=== PATIENT | female | born 1950 | race Two or more races ===

== ENCOUNTER 2020-04-14 17:56 | Inpatient (IN) | payer OTHER ==
[~2020-04-14] VITALS: Ht 152.4 cm; Wt 70.0 kg
[2020-04-14 10:24] VITALS: BP 134/68
[2020-04-14 19:06] LABS: Basophils # (auto) 0.1 10 ^3/uL (0-0.2); Basophils % (auto) 0.7 % (0.0-2.0); Eosinophils # (auto) 0.1 10 ^3/uL (0-0.8); Eosinophils % (auto) 1.2 % (0.0-7.0); Hematocrit 42.4 % (36.0-46.0); Hemoglobin 14.2 g/dL (12.2-16.2); Lymphocytes # (auto) 1.6 10 ^3/uL (0.4-5.4); Lymphocytes % (auto) 15.1 % (10.0-50.0); Mean Corpuscular Hemoglobin 31.7 pg (28.0-32.0); Mean Corpuscular Hgb Conc. 33.5 g/dL (32.0-36.0); Mean Corpuscular Volume 94.8 fL (80.0-100.0); Monocytes # (auto) 0.5 10 ^3/uL (0-1.3); Neutrophils # (auto) 8.5 10 ^3/uL (1.6-8.6); Platelet Count (auto) 275 10^3/uL (140-450); Red Blood Cells 4.47 10^6/uL (4.0-5.20); Red Cell Distribution Width 13.4 % (11.8-14.3); White Blood Cell 10.8 10^3/uL (4.4-10.8)
[2020-04-14 19:22] LABS: Alanine Aminotransferase 22 U/L (13-56); Albumin 3.7 g/dL (3.4-5.0); Anion Gap 4 (5-15); Aspartate Aminotransferase 14 U/L (15-37); BUN/Creatinine Ratio 14.6; Blood Urea Nitrogen 13 mg/dL (7-18); Calcium 9.2 mg/dL (8.5-10.1); Carbon Dioxide 26 mmol/L (21-32); Chloride 108 mmol/L (98-107); GFR African American 81 mL/min; GFR Non-African American 67 mL/min; Glucose 206 mg/dL (74-106); Potassium 3.5 mmol/L (3.5-5.1); Sodium 138 mmol/L (136-145)
[2020-04-14 19:25] LABS: Alkaline Phosphatase 122 U/L (45-117); Bilirubin, Total 0.3 mg/dL (0.2-1.0); Total Protein 7.8 g/dL (6.4-8.2)
[2020-04-14] MEDS ORDERED: cloNIDine HCL 0.1 MG TAB PO ONE ×2 (19:30→21:15)
[2020-04-14 19:31] LABS: INR 0.96 (0.9-1.15); Partial Thromboplastin Time 24.4 sec (23.64-32.05)
[2020-04-14] MEDS ORDERED: NITROGLYCERIN 0.4 MG SL TAB SL PRN (21:30)
[2020-04-14] MEDS ORDERED: ONDANSETRON HCL 4 MG/2 ML VIAL IV PRN (21:30)
[2020-04-14] MEDS ORDERED: cloNIDine HCL 0.1 MG TAB PO PRN (21:30)
[2020-04-14] MEDS ORDERED: TEMAZEPAM 15 MG CAP PO PRN (21:30)
[2020-04-14] MEDS ORDERED: ASPirin 81 mg TAB PO ONE (21:30)
[2020-04-14] MEDS ORDERED: MORPHINE SULF INJ 2 MG/ML SYRINGE 1ML IV PRN (21:30)
[2020-04-14] MEDS ORDERED: DEXTROSE (50%) 50ML SYRG IV PRN (21:30)
[2020-04-14 22:00] VITALS: BP 134/68
[2020-04-14] MEDS: ATORVASTATIN 20 MG TAB PO SCH (22:01)
[2020-04-14] MEDS: FAMOTIDINE 20 MG TAB PO SCH (22:02)
[2020-04-14] MEDS: METOPROLOL TARTRATE 25 MG TAB PO SCH (22:02)
[2020-04-14] MEDS: ACCU-CHEK COMFORT CURVE STRIP VI SCH (22:04)
[2020-04-14] MEDS: InsuLIN REG 1unit/0.01ml Soln (100units/ml) SC SCH (22:04)
--- NOTE | 2020-04-14 22:24 | NUR ---
Opening note Telemetry admit from GINNY ALDRIGDE admitted to Telemetry unit after SBAR received. Patient oriented to MELECIO NIETO, YARELI primary RN, Telemetry, 288, B, and unit policies regarding patient care and visiting hours. Patient now on continuous telemetry monitoring, tele box #50 and telemetry reading on arrival to unit is Normal Sinus Hr 78. Patient, weighed by bedscale and encouraged to call if they need something. All questions and concerns addressed, patient verbalized understanding.
[2020-04-15 05:00] VITALS: BP 113/70
[2020-04-15 05:42] LABS: Basophils # (auto) 0.1 10 ^3/uL (0-0.2); Basophils % (auto) 1.2 % (0.0-2.0); Eosinophils # (auto) 0.3 10 ^3/uL (0-0.8); Eosinophils % (auto) 2.9 % (0.0-7.0); Hematocrit 39.2 % (36.0-46.0); Hemoglobin 13.1 g/dL (12.2-16.2); Lymphocytes # (auto) 2.2 10 ^3/uL (0.4-5.4); Lymphocytes % (auto) 22.2 % (10.0-50.0); Mean Corpuscular Hemoglobin 31.6 pg (28.0-32.0); Mean Corpuscular Hgb Conc. 33.3 g/dL (32.0-36.0); Mean Corpuscular Volume 95.1 fL (80.0-100.0); Monocytes # (auto) 0.5 10 ^3/uL (0-1.3); Monocytes % (auto) 4.7 % (0.0-12.0); Neutrophils # (auto) 6.9 10 ^3/uL (1.6-8.6); Platelet Count (auto) 263 10^3/uL (140-450); Red Blood Cells 4.13 10^6/uL (4.0-5.20); Red Cell Distribution Width 13.2 % (11.8-14.3); White Blood Cell 9.9 10^3/uL (4.4-10.8)
[2020-04-15 06:00] LABS: BUN/Creatinine Ratio 14.8; Potassium 3.8 mmol/L (3.5-5.1)
[2020-04-15] MEDS: ACCU-CHEK COMFORT CURVE STRIP VI SCH ×4 (06:56→21:18)
[2020-04-15] MEDS: InsuLIN REG 1unit/0.01ml Soln (100units/ml) SC SCH ×4 (06:56→23:53)
--- NOTE | 2020-04-15 07:28 | NUR ---
Closing note Endorsed care to day shift RN.
--- NOTE | 2020-04-15 07:30 | NUR ---
Opening Shift Note Assumed care of patient, who is alert and oriented x4. Respirations are even and unlabored. No S/S of distress/SOB or pain. Bed is low, locked with 2x side rails up. Call light is within reach. Instructed on POC and to call for assist PRN, will continue to monitor for changes Q1hr and PRN.
[2020-04-15 09:00] VITALS: BP 116/68
[2020-04-15] MEDS ORDERED: ATOR10TA52 PO (09:33)
[2020-04-15] MEDS ORDERED: LOSA-39 PO (09:33)
[2020-04-15] MEDS: ASPirin 81 mg TAB PO SCH (09:34)
[2020-04-15] MEDS: METOPROLOL TARTRATE 25 MG TAB PO SCH ×2 (09:34→21:18)
[2020-04-15] MEDS: FAMOTIDINE 20 MG TAB PO SCH ×2 (09:35→21:18)
[2020-04-15] MEDS: LOSARTAN POTASSIUM 50 MG TAB PO SCH (09:35)
[2020-04-15] MEDS: ENOXAPARIN SOD 40 MG/0.4 ML SYRINGE SC SCH (09:35)
[2020-04-15 12:43] VITALS: BP 124/62
--- NOTE | 2020-04-15 13:16 | NUR ---
RECEIVED ORDERS FOR ST EVALUATION BUT PATIENT'S DYSPHAGIA AND APHASIA HAS RESOLVED. NO SPEECH EVALUATION NEEDED.
[2020-04-15 17:11] VITALS: BP 156/76
--- NOTE | 2020-04-15 21:01 | NUR ---
dr cooney at bedside.
[2020-04-15] MEDS: ATORVASTATIN 20 MG TAB PO SCH (21:18)
[2020-04-15 21:46] VITALS: BP 154/81
[2020-04-16 02:26] VITALS: BP 154/81
[2020-04-16 05:30] VITALS: BP 157/81
[2020-04-16] MEDS: ACCU-CHEK COMFORT CURVE STRIP VI SCH ×4 (06:37→22:06)
[2020-04-16] MEDS: InsuLIN REG 1unit/0.01ml Soln (100units/ml) SC SCH ×4 (06:37→22:00)
--- NOTE | 2020-04-16 07:14 | NUR ---
RT NOTE: PT HAD JUST TAKEN CPAP OFF WHEN I ENTERED ROOM. PT ON RA WITH SPO2 97 HR 78 RR 16. NO SIGNS OF DISTRESS NOTED. RN ALSO BEDSIDE. WILL CONTINUE TO MONITOR.
--- NOTE | 2020-04-16 07:15 | NUR ---
Opening Shift Note Assumed care of patient, who is alert and oriented. Respirations are even and unlabored. No S/S of distress/SOB or pain. Bed is low, locked with 2x side rails up. Call light is within reach. Instructed on POC and to call for assist PRN, will continue to monitor for changes Q1hr and PRN.
[2020-04-16 09:24] VITALS: BP 158/76
--- NOTE | 2020-04-16 10:39 | NUR ---
Dr. Brody Rounding Dr. Brody is at bedside. MD is updating patient on POC and results of Brain MRI. Patient is to be seen by Dr. Park (Cardio) today. Patient possibly having a YAN on Saturday. Will continue to monitor.
[2020-04-16] MEDS ORDERED: ACETAMINOPHEN 325 MG TAB PO PRN (10:45)
[2020-04-16] MEDS: ASPirin 81 mg TAB PO SCH (10:49)
[2020-04-16] MEDS: ENOXAPARIN SOD 40 MG/0.4 ML SYRINGE SC SCH (10:50)
[2020-04-16] MEDS: LOSARTAN POTASSIUM 50 MG TAB PO SCH (10:50)
[2020-04-16] MEDS: METOPROLOL TARTRATE 25 MG TAB PO SCH ×2 (10:50→21:49)
[2020-04-16] MEDS: FAMOTIDINE 20 MG TAB PO SCH ×2 (10:50→21:49)
--- NOTE | 2020-04-16 11:42 | NUR ---
Dr. Park at bedside Patient to have YAN on Saturday. Patient verbalized understanding. Will continue to monitor.
[2020-04-16 13:00] VITALS: BP 169/84
[2020-04-16 16:56] VITALS: BP 144/76
--- NOTE | 2020-04-16 20:00 | NUR ---
Opening Shift Note Assumed care of patient, awake and alert. No S/S of distress/SOB or pain. Instructed on POC and to call for assist PRN, will continue to monitor for changes Q1hr and PRN. Bed in low position and call light in reach
[2020-04-16] MEDS: ATORVASTATIN 20 MG TAB PO SCH (21:49)
[2020-04-16 22:00] VITALS: BP 135/72
--- NOTE | 2020-04-16 22:40 | NUR ---
RT NOTE PLACED PT ON HOSPITAL OWNED HOME CPAP UNIT #RESPIRATORY 4 WITH MEDIUM MASK ON STATED SETTINGS APAP 5-15 CMH20. CPAP IS PLUGGED TO RED OUTLET. PT IS ON BEDSIDE POX PER PROTOCOL.WATER LEVEL FILLED TO FILL LINE ND HUMIDIFIER SET TO 1. POX 95% Addendum: 04/17/20 at 0114 by Rama Goldman RT Amended: Links added.
--- NOTE | 2020-04-17 00:13 | NUR ---
RT NOTE ROUTINE CPAP CHECK DONE. PT ON HOSPITAL OWNED HOME CPAP UNIT #RESPIRATORY 4 WITH MEDIUM MASK ON STATED SETTINGS APAP 5-15 CMH20. CPAP IS PLUGGED TO RED OUTLET. PT IS ON BEDSIDE POX PER PROTOCOL.WATER LEVEL ADEQUATE. HUMIDIFIER SET TO 1. PT IS SLEEPING AND APPEARS COMFORTABLE. POX 96% Addendum: 04/17/20 at 0115 by Rama Goldman RT Amended: Links added.
--- NOTE | 2020-04-17 02:15 | NUR ---
RT NOTE ROUTINE CPAP CHECK DONE. PT ON HOSPITAL OWNED HOME CPAP UNIT #RESPIRATORY 4 WITH MEDIUM MASK ON STATED SETTINGS APAP 5-15 CMH20. CPAP IS PLUGGED TO RED OUTLET. PT IS ON BEDSIDE POX PER PROTOCOL.WATER LEVEL ADEQUATE. HUMIDIFIER SET TO 1. PT IS SLEEPING AND APPEARS COMFORTABLE. POX 96% Addendum: 04/17/20 at 0307 by Rama Goldman RT Amended: Links added.
[2020-04-17 05:00] VITALS: BP 159/86
--- NOTE | 2020-04-17 06:00 | NUR ---
Patient's blood pressure 158/86. Medicated with PRN Clonidine 0.1 mg.
[2020-04-17] MEDS: ACCU-CHEK COMFORT CURVE STRIP VI SCH ×4 (06:44→22:00)
[2020-04-17] MEDS: InsuLIN REG 1unit/0.01ml Soln (100units/ml) SC SCH ×3 (06:44→17:16)
[2020-04-17 07:37] LABS: Cholesterol 108 mg/dL (< 200); HDL Cholesterol 27 mg/dL (40-59); LDL Cholesterol 68 mg/dL (< 100); Triglycerides 145 mg/dL (< 150)
[2020-04-17 09:00] VITALS: BP 124/67
[2020-04-17] MEDS: FAMOTIDINE 20 MG TAB PO SCH ×2 (09:15→23:36)
[2020-04-17] MEDS: ASPirin 81 mg TAB PO SCH (09:15)
[2020-04-17] MEDS: METOPROLOL TARTRATE 25 MG TAB PO SCH ×2 (09:16→23:37)
[2020-04-17] MEDS: LOSARTAN POTASSIUM 50 MG TAB PO SCH (09:17)
[2020-04-17] MEDS: ENOXAPARIN SOD 40 MG/0.4 ML SYRINGE SC SCH (10:00)
--- NOTE | 2020-04-17 11:50 | NUR ---
Dr. Brody Rounding Dr. Brody is at bedside. MD updated patient on POC. Per MD if YAN results are negative patient may be discharged home. Will continue to monitor.
[2020-04-17 13:00] VITALS: BP 152/73
[2020-04-17 17:00] VITALS: BP 144/68
[2020-04-17 22:00] VITALS: BP 142/77
[2020-04-17] MEDS ORDERED: InsuLIN REG 1unit/0.01ml Soln (100units/ml) SC SCH (22:00)
[2020-04-17] MEDS: ATORVASTATIN 20 MG TAB PO SCH (23:37)
--- NOTE | 2020-04-18 04:00 | NUR ---
Respiratory note: WENT IN TO DO CPAP CHECK AND PATIENT HAD TAKEN HERSELF OFF CPAP FOR THE DAY. NO RESP DISTRESS NOTED. PT IS ON ROOM AIR, SPO2 97%
[2020-04-18 04:32] LABS: Urine WBC None Seen /hpf (0 - 5)
[2020-04-18 04:59] LABS: Urine Bacteria NONE SEEN /hpf (None Seen); Urine Blood Negative /uL (Negative); Urine Specific Gravity 1.014 (1.001-1.035)
[2020-04-18 05:00] VITALS: BP 142/71
[2020-04-18 06:12] LABS: Basophils # (auto) 0.1 10 ^3/uL (0-0.2); Basophils % (auto) 0.8 % (0.0-2.0); Eosinophils # (auto) 0.3 10 ^3/uL (0-0.8); Eosinophils % (auto) 3.5 % (0.0-7.0); Hematocrit 40.4 % (36.0-46.0); Hemoglobin 13.5 g/dL (12.2-16.2); Lymphocytes # (auto) 1.9 10 ^3/uL (0.4-5.4); Lymphocytes % (auto) 19.9 % (10.0-50.0); Mean Corpuscular Hemoglobin 31.6 pg (28.0-32.0); Mean Corpuscular Hgb Conc. 33.5 g/dL (32.0-36.0); Mean Corpuscular Volume 94.3 fL (80.0-100.0); Monocytes # (auto) 0.5 10 ^3/uL (0-1.3); Monocytes % (auto) 5.2 % (0.0-12.0); Neutrophils # (auto) 6.9 10 ^3/uL (1.6-8.6); Neutrophils % (auto) 70.6 % (37.0-80.0); Nucleated Red Blood Cells % 0.1 %; Platelet Count (auto) 267 10^3/uL (140-450); Red Blood Cells 4.28 10^6/uL (4.0-5.20); Red Cell Distribution Width 13.2 % (11.8-14.3); White Blood Cell 9.7 10^3/uL (4.4-10.8)
[2020-04-18 06:24] LABS: INR 0.99 (0.9-1.15); Partial Thromboplastin Time 25.5 sec (23.64-32.05)
[2020-04-18 06:37] LABS: Potassium 4.1 mmol/L (3.5-5.1)
[2020-04-18 06:42] LABS: BUN/Creatinine Ratio 20.6; Calcium 9.6 mg/dL (8.5-10.1)
[2020-04-18] MEDS: ACCU-CHEK COMFORT CURVE STRIP VI SCH ×2 (06:45→13:30)
[2020-04-18] MEDS: InsuLIN REG 1unit/0.01ml Soln (100units/ml) SC SCH ×2 (06:46→13:38)
--- NOTE | 2020-04-18 07:10 | NUR ---
OPENING SHIFT NOTE Assumed care of patient from stock blender RN. Patient is alert and oriented x4, no signs of distress noted. Patient was updated on the plan of care and she verbalized understanding. Bed is locked, in the lowest position, side rails up x2 and call light is in reach. Patient was encouraged to call for assistance as needed.
--- NOTE | 2020-04-18 07:15 | NUR ---
End of Shift Note Endorsed care to dayshift RN. At this time patient has no s/s of distress or SOB. Responsive to name and touch.
[2020-04-18 08:53] VITALS: BP 143/73
--- NOTE | 2020-04-18 09:28 | NUR ---
PAGED SHO for procedure to be explained to patient for consents to be signed. Message left with Francoise at his office, awaiting call back.
--- NOTE | 2020-04-18 09:35 | NUR ---
CALL FROM SHO Palmer MD he explained YAN procedure in detail with the patient, will ask patient again if she understands the procedure and have her sign consents.
[2020-04-18] MEDS: LOSARTAN POTASSIUM 50 MG TAB PO SCH (09:44)
[2020-04-18] MEDS: METOPROLOL TARTRATE 25 MG TAB PO SCH (09:44)
--- NOTE | 2020-04-18 10:27 | NUR ---
PATIENT TAKEN TO PULMONARY PHYSICIAN no signs of distress upon departure, care endorsed to clay processing labourer RN.
[2020-04-18] MEDS ORDERED: MIDAZOLAM HCL 1MG/1ML-2 ML VIAL IV ONE (10:45)
[2020-04-18] MEDS ORDERED: LIDOCAINE VISCOUS 2% 15ML UD PO ONE (10:45)
[2020-04-18] MEDS ORDERED: fentaNYL CITRATE 100 MCG/2 ML VL IV ONE (10:45)
[2020-04-18] MEDS ORDERED: diphenhdrAMINE HCL 50 MG/1 ML VL IV ONE (10:45)
--- NOTE | 2020-04-18 12:53 | NUR ---
PATIENT BACK FROM MILL TENDER SECOND OPERATOR No signs of distress noted, bed alarm on, call light is in reach. Patient was encouraged to call before ambulating. Patient is S/P YAN and is to be NPO until 1345.
[2020-04-18 13:02] VITALS: BP 151/70
[2020-04-18] MEDS: ENOXAPARIN SOD 40 MG/0.4 ML SYRINGE SC SCH (13:37)
[2020-04-18] MEDS: FAMOTIDINE 20 MG TAB PO SCH (14:25)
[2020-04-18] MEDS: ASPirin 81 mg TAB PO SCH (14:25)
--- NOTE | 2020-04-18 14:39 | NUR ---
CALLED [facility] regarding patient home health and front wheel walker. Per Nora the walker will be delivered to the house and she will follow up with patient outpatient for home health.
--- NOTE | 2020-04-18 15:29 | NUR ---
D/C Planning Per consult for home health evaluation, PT/OT and walker. Faxed clinical information to [facility] requesting for them to assist with home health agency and medical equipment. Per Kaleigh with [facility] home health solution ) has accepted patient and patient will be seen within 24hrs upon d/c day. [facility] ) will deliver walker to patient home. YARELI Tellez was informed.
[2020-04-18 15:30] VITALS: BP 140/75
--- NOTE | 2020-04-18 15:40 | NUR ---
assessment Patient is a 69 year old female who is alert and oriented. Patients cognitive abilities are intact. Prior to admission patient lived home with family and functioned independently. Patient informed me she is able to care for her own ADLs. Per patient she will return home to her prior living arrangements post discharge and family will transport her home. Patient has been admitted for acute CVA. Per patient she has no deficits. Patients PCP is Dr Del Rosario. Patient has a consult for home health and fww. [facility] foster care case manager has set up walker to be delivered to bedside and home health is set up with [facility]. I informed patient she has a right to speak to a social media marketing manager regarding all care. I informed patient she has a right to participate in any and all discharge planning. Patient does not have a POA and advanced directive. I have offered patient information on POA and advanced directives. I informed the patient the advantages and benefits of having an Advanced Directive. Patient verbalized understanding and agreed to discharge plan. Addendum: 04/18/20 at 1543 by Perla VILLATORO Amended: Links added.
--- NOTE | 2020-04-18 16:40 | NUR ---
DISCHARGE Discharge instructions given as ordered. Encourage to follow up with PMD as instructed. All questions and concerns addressed. Patient verbalized understanding. Medication reconciliation form completed and copy given to patient. IV removed with catheter intact, pressure dressing applied. Telemetry unit returned to ICU. Patient taken to vehicle via wheelchair with all personal belongings, accompanied by staff. No distress noted at time of departure.
== END 2020-04-18 16:35 | disposition home or self-care (01) | DRG 65 ==
LOC: ER 17:59 → TELE-WESTW 18:00
PROVIDERS: ADMIT Nurse Practitioner; ATTEND Internal Medicine Geriatric Medicine
PROC: 5A09357 Assistance with Respiratory Ventilation, Less than 24 Consecutive Hours, Continuous Positive Airway Pressure (ICD-10-PCS; principal; 2020-04-15)
PROC: 5A09357 Assistance with Respiratory Ventilation, Less than 24 Consecutive Hours, Continuous Positive Airway Pressure (ICD-10-PCS; 2020-04-17)
PROC: B24BZZ4 Ultrasonography of Heart with Aorta, Transesophageal (ICD-10-PCS; 2020-04-18)
PROC: 5A09357 Assistance with Respiratory Ventilation, Less than 24 Consecutive Hours, Continuous Positive Airway Pressure (ICD-10-PCS; 2020-04-18)
DX: I63.9 Cerebral infarction, unspecified (principal); I16.9 Hypertensive crisis, unspecified; E11.65 Type 2 diabetes mellitus with hyperglycemia; E66.9 Obesity, unspecified; G47.10 Hypersomnia, unspecified; R47.01 Aphasia; Z86.73 Personal history of transient ischemic attack (TIA), and cerebral infarction without residual deficits; Z79.4 Long term (current) use of insulin; I10 Essential (primary) hypertension; E78.5 Hyperlipidemia, unspecified; Z79.82 Long term (current) use of aspirin; Z79.899 Other long term (current) drug therapy; Z80.9 Family history of malignant neoplasm, unspecified; Z82.3 Family history of stroke; Z82.49 Family history of ischemic heart disease and other diseases of the circulatory system; Z83.3 Family history of diabetes mellitus; Z90.710 Acquired absence of both cervix and uterus; Z68.29 Body mass index [BMI] 29.0-29.9, adult
CPT/HCPCS: 36415; 70450; 70551; 71045; 80048; 80053; 80061; 81001; 82962; 84484; 85025; 85610; 85730; 86850; 86900; 86901; 93005; 93306; 93312; 93886; 94660; 99152; G0378; J1815; J2250

== ENCOUNTER 2022-08-26 19:05 | Emergency (ER) | payer OTHER ==
[~2022-08-26] VITALS: Ht 152.4 cm; Wt 65.0 kg
[~2022-08-26 19:05] MED LIST: ATOR10TA52 PO; LOSA-39 PO
[2022-08-26 20:11] VITALS: BP 147/76
[2022-08-26 21:39] LABS: Basophils # (auto) 0.1 10 ^3/uL (0-0.2); Basophils % (auto) 0.9 % (0.0-2.0); Eosinophils # (auto) 0.2 10 ^3/uL (0-0.8); Eosinophils % (auto) 3.4 % (0.0-7.0); Hematocrit 37.7 % (36.0-46.0); Hemoglobin 12.5 g/dL (12.2-16.2); Lymphocytes # (auto) 1.5 10 ^3/uL (0.4-5.4); Lymphocytes % (auto) 20.6 % (10.0-50.0); Mean Corpuscular Hemoglobin 31.8 pg (28.0-32.0); Mean Corpuscular Hgb Conc. 33.2 g/dL (32.0-36.0); Mean Corpuscular Volume 95.8 fL (80.0-100.0); Monocytes # (auto) 0.7 10 ^3/uL (0-1.3); Neutrophils # (auto) 4.9 10 ^3/uL (1.6-8.6); Neutrophils % (auto) 66.1 % (37.0-80.0); Nucleated Red Blood Cells % 0.1 %; Red Blood Cells 3.94 10^6/uL (4.0-5.20); Red Cell Distribution Width 13.5 % (11.8-14.3); White Blood Cell 7.4 10^3/uL (4.4-10.8)
[2022-08-26 21:41] LABS: Albumin 3.8 g/dL (3.4-5.0); BUN/Creatinine Ratio 12.7; Bilirubin, Total 0.2 mg/dL (0.2-1.0); Calcium 10.5 mg/dL (8.5-10.1); Potassium 3.9 mmol/L (3.5-5.1); Total Protein 7.7 g/dL (6.4-8.2)
[2022-08-26 21:46] LABS: INR 0.93 (0.9-1.15); Partial Thromboplastin Time 25.3 sec (24.6-33.4)
[2022-08-26] MEDS ORDERED: LISINOPRIL 10 MG TAB PO ONE (23:00)
== END 2022-08-27 00:20 | disposition left against medical advice (07) ==
LOC: ER 19:09
DX: H11.32 Conjunctival hemorrhage, left eye (principal); I10 Essential (primary) hypertension; D69.1 Qualitative platelet defects; E11.9 Type 2 diabetes mellitus without complications; E78.5 Hyperlipidemia, unspecified; Z86.73 Personal history of transient ischemic attack (TIA), and cerebral infarction without residual deficits; Z90.710 Acquired absence of both cervix and uterus; Z79.899 Other long term (current) drug therapy
CPT/HCPCS: 36415; 70450; 70480; 80053; 85025; 85610; 85730

== ENCOUNTER 2023-11-13 09:48 | Inpatient (IN) | payer OTHER ==
[~2023-11-13] VITALS: Ht 152.4 cm; Wt 67.2 kg
[~2023-11-13 09:48] MED LIST changes: -LOSA-39 PO; +LOSA100T58 PO
[2023-11-13 14:08] LABS: Basophils # (auto) 0.1 10 ^3/uL (0-0.2); Basophils % (auto) 0.6 % (0.0-2.0); Eosinophils # (auto) 0.1 10 ^3/uL (0-0.8); Eosinophils % (auto) 1.1 % (0.0-7.0); Hematocrit 41.1 % (36.0-46.0); Hemoglobin 13.5 g/dL (12.2-16.2); Lymphocytes # (auto) 1.6 10 ^3/uL (0.4-5.4); Lymphocytes % (auto) 16.1 % (10.0-50.0); Mean Corpuscular Hemoglobin 32.8 pg (28.0-32.0); Mean Corpuscular Hgb Conc. 32.7 g/dL (32.0-36.0); Mean Corpuscular Volume 100.1 fL (80.0-100.0); Monocytes # (auto) 0.4 10 ^3/uL (0-1.3); Monocytes % (auto) 4.4 % (0.0-12.0); Neutrophils # (auto) 7.9 10 ^3/uL (1.6-8.6); Neutrophils % (auto) 77.8 % (37.0-80.0); Red Blood Cells 4.11 10^6/uL (4.0-5.20); Red Cell Distribution Width 13.3 % (11.8-14.3); White Blood Cell 10.1 10^3/uL (4.4-10.8)
[2023-11-13 14:16] LABS: Alanine Aminotransferase 20 U/L (7-40); Albumin 4.6 g/dL (3.2-4.8); Alkaline Phosphatase 97 U/L (46-116); Anion Gap 3 (5-15); Aspartate Aminotransferase 25 U/L (13-40); BUN/Creatinine Ratio 17.5 (10.0-20.0); Bilirubin, Total 0.5 mg/dL (0.2-1.0); Blood Urea Nitrogen 20 mg/dL (9-23); Calcium 10.9 mg/dL (8.5-10.1); Carbon Dioxide 27 mmol/L (20-30); Chloride 110 mmol/L (98-107); Glucose 100 mg/dL (74-106); Potassium 4.3 mmol/L (3.5-5.1); Sodium 140 mmol/L (136-145)
[2023-11-13 14:17] LABS: Total Protein 7.3 g/dL (5.7-8.2)
[2023-11-13 14:24] LABS: INR 0.95 (0.9-1.15); Partial Thromboplastin Time 23.4 SEC (24.5-34.5)
[2023-11-13 14:27] LABS: Magnesium 2.1 mg/dL (1.6-2.6)
[2023-11-13] MEDS ORDERED: ASPirin 325 MG TAB PO SCH (15:00)
[2023-11-13] MEDS ORDERED: INSU100I76 SC (15:01)
[2023-11-13] MEDS ORDERED: CHOL100047 PO (15:01)
[2023-11-13] MEDS ORDERED: INSU50IN6 SC (15:01)
[2023-11-13] MEDS ORDERED: CLOP75TA28 PO (15:01)
[2023-11-13] MEDS ORDERED: ATOR10TA PO (15:03)
[2023-11-13] MEDS ORDERED: AML5T PO (15:05)
[2023-11-13] MEDS ORDERED: ASPirin 325 MG TAB PO ONE (15:15)
[2023-11-13] MEDS ORDERED: SODIUM CHLORIDE 0.9% 1,000 ML IV ONE (15:30)
[2023-11-13] MEDS ORDERED: IOHEXOL 350 MG/ML 100ML IJ ONE (15:30)
[2023-11-13] MEDS ORDERED: ENOXAPARIN SOD 40 MG/0.4 ML SYRINGE SC SCH (15:30)
[2023-11-13 16:30] LABS: Magnesium 2.2 mg/dL (1.6-2.6)
[2023-11-13] MEDS: SODIUM CHLORIDE 0.9% 1,000 ML IV SCH ×2 (17:41→23:30)
[2023-11-13 19:30] VITALS: PULSE 80; RESP 18; O2SAT 98
[2023-11-13] MEDS: ATORVASTATIN 20 MG TAB PO SCH ×2 (20:33→22:00)
[2023-11-13] MEDS ORDERED: ATORVASTATIN 20 MG TAB PO SCH (22:00)
[2023-11-13] MEDS: FAMOTIDINE 20 MG TAB PO SCH ×2 (22:00→22:13)
[2023-11-13] MEDS: METOPROLOL TARTRATE 50 MG TAB PO SCH ×2 (22:00→22:13)
[2023-11-13] MEDS ORDERED: DEXTROSE (50%) 50ML SYRG IV PRN (22:15)
[2023-11-13] MEDS: InsuLIN REG 1unit/0.01ml Soln (100units/ml) SC SCH (22:58)
[2023-11-13] MEDS: ACCU-CHEK COMFORT CURVE STRIP VI SCH (22:58)
[2023-11-13 23:00] VITALS: BP 146/67; PULSE 76; RESP 20; TEMP 98.2; O2SAT 95
[2023-11-14] VITALS (9 sets, daily range): BP systolic 125–165; BP diastolic 55–71; PULSE 65–70; RESP 17–20; TEMP 97.9–98.2; O2SAT 94–97
[2023-11-14] MEDS: InsuLIN REG 1unit/0.01ml Soln (100units/ml) SC SCH ×4 (06:47→21:03)
[2023-11-14] MEDS: ACCU-CHEK COMFORT CURVE STRIP VI SCH ×4 (06:50→22:00)
[2023-11-14] MEDS ORDERED: ACCU-CHEK COMFORT CURVE STRIP VI SCH (07:00)
[2023-11-14] MEDS ORDERED: InsuLIN REG 1unit/0.01ml Soln (100units/ml) SC SCH (07:00)
[2023-11-14] MEDS: ASPirin 81 mg TAB PO SCH (09:38)
[2023-11-14] MEDS: METOPROLOL TARTRATE 50 MG TAB PO SCH (09:38)
[2023-11-14] MEDS: FAMOTIDINE 20 MG TAB PO SCH ×2 (09:38→21:02)
[2023-11-14] MEDS: CLOPIDOGREL BISULFATE 75 MG TAB PO SCH (09:38)
[2023-11-14] MEDS: ENOXAPARIN SOD 40 MG/0.4 ML SYRINGE SC SCH (09:39)
[2023-11-14] MEDS ORDERED: ENOXAPARIN SOD 40 MG/0.4 ML SYRINGE SC SCH (10:00)
[2023-11-14] MEDS ORDERED: IOHEXOL 350 MG/ML 100ML IJ ONE (10:57)
[2023-11-14 11:12] LABS: Chloride 108 mmol/L (98-107); Potassium 3.9 mmol/L (3.5-5.1); Sodium 139 mmol/L (136-145)
[2023-11-14 11:13] LABS: Anion Gap 4 (5-15); Carbon Dioxide 27 mmol/L (20-30)
[2023-11-14 11:14] LABS: Calcium 10.3 mg/dL (8.5-10.1)
[2023-11-14 11:18] LABS: BUN/Creatinine Ratio 12.5 (10.0-20.0); Blood Urea Nitrogen 14 mg/dL (9-23); Glucose 226 mg/dL (74-106)
[2023-11-14] MEDS: ATORVASTATIN 20 MG TAB PO SCH (21:02)
[2023-11-14] MEDS: INSULIN LANTUS (GLARGINE) 1 /0.01ml (100units/ml) SC SCH (21:04)
[2023-11-14] MEDS ORDERED: INSULIN LANTUS (GLARGINE) 1 /0.01ml (100units/ml) SC SCH (22:00)
[2023-11-15] VITALS (8 sets, daily range): BP systolic 135–154; BP diastolic 63–78; PULSE 61–80; RESP 16–17; TEMP 97.9–98.3; O2SAT 95–97
[2023-11-15] MEDS: InsuLIN REG 1unit/0.01ml Soln (100units/ml) SC SCH ×4 (06:40→22:17)
[2023-11-15] MEDS: INSULIN LANTUS (GLARGINE) 1 /0.01ml (100units/ml) SC SCH ×2 (06:40→22:17)
[2023-11-15] MEDS: ACCU-CHEK COMFORT CURVE STRIP VI SCH ×4 (06:41→22:11)
[2023-11-15 07:06] LABS: RPR Non Reactive (Non Reactive)
[2023-11-15 07:07] LABS: Anion Gap 6 (5-15); Carbon Dioxide 25 mmol/L (20-30); Chloride 109 mmol/L (98-107); Potassium 3.9 mmol/L (3.5-5.1); Sodium 140 mmol/L (136-145)
[2023-11-15 07:08] LABS: Calcium 9.9 mg/dL (8.7-10.4)
[2023-11-15 07:13] LABS: BUN/Creatinine Ratio 16.7 (10.0-20.0); Blood Urea Nitrogen 18 mg/dL (9-23); Glucose 165 mg/dL (74-106)
[2023-11-15] MEDS: amLODIPine BESYLATE 5 MG TAB PO SCH (09:20)
[2023-11-15] MEDS: LOSARTAN POTASSIUM 50 MG TAB PO SCH (09:21)
[2023-11-15] MEDS: CLOPIDOGREL BISULFATE 75 MG TAB PO SCH (09:21)
[2023-11-15] MEDS: FAMOTIDINE 20 MG TAB PO SCH ×2 (09:21→22:11)
[2023-11-15] MEDS: ENOXAPARIN SOD 40 MG/0.4 ML SYRINGE SC SCH (09:22)
[2023-11-15] MEDS: ASPirin 81 mg TAB PO SCH (09:22)
[2023-11-15] MEDS ORDERED: IOHEXOL 350 MG/ML 100ML IJ ONE (15:54)
[2023-11-15] MEDS: ATORVASTATIN 20 MG TAB PO SCH (22:11)
[2023-11-16] VITALS (7 sets, daily range): BP systolic 125–148; BP diastolic 57–74; PULSE 64–92; RESP 16–18; TEMP 96.5–98.4; O2SAT 93–96
[2023-11-16] MEDS: ACCU-CHEK COMFORT CURVE STRIP VI SCH ×4 (06:25→22:19)
[2023-11-16] MEDS: INSULIN LANTUS (GLARGINE) 1 /0.01ml (100units/ml) SC SCH ×2 (06:32→22:14)
[2023-11-16] MEDS: InsuLIN REG 1unit/0.01ml Soln (100units/ml) SC SCH ×4 (06:41→22:06)
[2023-11-16] MEDS: amLODIPine BESYLATE 5 MG TAB PO SCH (09:42)
[2023-11-16] MEDS: CLOPIDOGREL BISULFATE 75 MG TAB PO SCH (09:42)
[2023-11-16] MEDS: FAMOTIDINE 20 MG TAB PO SCH ×2 (09:42→22:14)
[2023-11-16] MEDS: ASPirin 81 mg TAB PO SCH (09:42)
[2023-11-16] MEDS: ENOXAPARIN SOD 40 MG/0.4 ML SYRINGE SC SCH (09:43)
[2023-11-16] MEDS: LOSARTAN POTASSIUM 50 MG TAB PO SCH (09:47)
[2023-11-16] MEDS: ATORVASTATIN 20 MG TAB PO SCH (22:14)
[2023-11-17] VITALS (7 sets, daily range): BP systolic 105–145; BP diastolic 55–72; PULSE 62–77; RESP 18–21; TEMP 97.6–98.4; O2SAT 93–95
[2023-11-17] MEDS: ACCU-CHEK COMFORT CURVE STRIP VI SCH ×4 (06:27→21:33)
[2023-11-17] MEDS: InsuLIN REG 1unit/0.01ml Soln (100units/ml) SC SCH ×4 (06:27→21:39)
[2023-11-17] MEDS: INSULIN LANTUS (GLARGINE) 1 /0.01ml (100units/ml) SC SCH ×2 (06:27→21:38)
[2023-11-17] MEDS: ASPirin 81 mg TAB PO SCH (10:15)
[2023-11-17] MEDS: FAMOTIDINE 20 MG TAB PO SCH ×2 (10:15→21:37)
[2023-11-17] MEDS: CLOPIDOGREL BISULFATE 75 MG TAB PO SCH (10:19)
[2023-11-17] MEDS: amLODIPine BESYLATE 5 MG TAB PO SCH (10:19)
[2023-11-17] MEDS: ENOXAPARIN SOD 40 MG/0.4 ML SYRINGE SC SCH (10:20)
[2023-11-17] MEDS: LOSARTAN POTASSIUM 50 MG TAB PO SCH (10:20)
[2023-11-17] MEDS: ATORVASTATIN 20 MG TAB PO SCH (21:37)
[2023-11-18] VITALS (10 sets, daily range): BP systolic 90–145; BP diastolic 48–70; PULSE 59–84; RESP 12–20; TEMP 97.8–98.3; O2SAT 94–97
[2023-11-18] MEDS: INSULIN LANTUS (GLARGINE) 1 /0.01ml (100units/ml) SC SCH ×2 (06:40→22:06)
[2023-11-18] MEDS: ACCU-CHEK COMFORT CURVE STRIP VI SCH ×4 (06:40→22:01)
[2023-11-18] MEDS: InsuLIN REG 1unit/0.01ml Soln (100units/ml) SC SCH ×4 (06:40→22:06)
[2023-11-18 06:55] LABS: Basophils # (auto) 0.1 10 ^3/uL (0-0.2); Basophils % (auto) 1.1 % (0.0-2.0); Eosinophils # (auto) 0.4 10 ^3/uL (0-0.8); Eosinophils % (auto) 5.2 % (0.0-7.0); Hematocrit 36.8 % (36.0-46.0); Hemoglobin 12.3 g/dL (12.2-16.2); Lymphocytes # (auto) 1.7 10 ^3/uL (0.4-5.4); Lymphocytes % (auto) 19.9 % (10.0-50.0); Mean Corpuscular Hgb Conc. 33.6 g/dL (32.0-36.0); Mean Corpuscular Volume 98.1 fL (80.0-100.0); Monocytes # (auto) 0.6 10 ^3/uL (0-1.3); Monocytes % (auto) 6.7 % (0.0-12.0); Neutrophils # (auto) 5.6 10 ^3/uL (1.6-8.6); Neutrophils % (auto) 67.1 % (37.0-80.0); Nucleated Red Blood Cells % 0.1 %; Red Blood Cells 3.75 10^6/uL (4.0-5.20); Red Cell Distribution Width 12.9 % (11.8-14.3); White Blood Cell 8.3 10^3/uL (4.4-10.8)
[2023-11-18 07:10] LABS: INR 0.98 (0.9-1.15); Partial Thromboplastin Time 25.7 SEC (24.5-34.5); Prothrombin Time 10.3 sec (9.3-11.8)
[2023-11-18 07:21] LABS: Alanine Aminotransferase 43 U/L (7-40); Alkaline Phosphatase 89 U/L (46-116); Anion Gap 4 (5-15); Aspartate Aminotransferase 36 U/L (13-40); BUN/Creatinine Ratio 17.9 (10.0-20.0); Bilirubin, Total 0.3 mg/dL (0.2-1.0); Blood Urea Nitrogen 22 mg/dL (9-23); Calcium 10.2 mg/dL (8.5-10.1); Carbon Dioxide 26 mmol/L (20-30); Chloride 109 mmol/L (98-107); Glucose 179 mg/dL (74-106); Potassium 4.3 mmol/L (3.5-5.1); Sodium 139 mmol/L (136-145); Total Protein 6.6 g/dL (5.7-8.2)
[2023-11-18] MEDS: FAMOTIDINE 20 MG TAB PO SCH ×2 (09:52→22:01)
[2023-11-18] MEDS: amLODIPine BESYLATE 5 MG TAB PO SCH (09:52)
[2023-11-18] MEDS: LOSARTAN POTASSIUM 50 MG TAB PO SCH (09:52)
[2023-11-18] MEDS ORDERED: ONDANSETRON HCL 4 MG/2 ML VIAL IV ONE (11:30)
[2023-11-18] MEDS ORDERED: MIDAZOLAM HCL 2MG/2ML 2ml VIAL (1mg/ml) IV ONE (11:30)
[2023-11-18] MEDS ORDERED: LIDOCAINE VISCOUS 2% 15ML UD PO ONE (11:30)
[2023-11-18] MEDS ORDERED: fentaNYL CITRATE 100 MCG/2 ML VL IV ONE (11:30)
[2023-11-18] MEDS: CLOPIDOGREL BISULFATE 75 MG TAB PO SCH (14:50)
[2023-11-18] MEDS: ENOXAPARIN SOD 40 MG/0.4 ML SYRINGE SC SCH (14:50)
[2023-11-18] MEDS: ASPirin 81 mg TAB PO SCH (14:50)
[2023-11-18] MEDS: SODIUM CHLORIDE 0.9% 1,000 ML IV SCH (16:00)
[2023-11-18] MEDS: ATORVASTATIN 20 MG TAB PO SCH (22:01)
[2023-11-19] MEDS: SODIUM CHLORIDE 0.9% 1,000 ML IV SCH ×2 (00:52→10:43)
[2023-11-19 05:00] VITALS: BP 146/64; PULSE 64; RESP 18; TEMP 97.6; O2SAT 97
[2023-11-19] MEDS: InsuLIN REG 1unit/0.01ml Soln (100units/ml) SC SCH ×2 (06:16→11:30)
[2023-11-19] MEDS: INSULIN LANTUS (GLARGINE) 1 /0.01ml (100units/ml) SC SCH (06:16)
[2023-11-19] MEDS: ACCU-CHEK COMFORT CURVE STRIP VI SCH ×2 (06:17→10:49)
[2023-11-19 06:49] LABS: Anion Gap 5 (5-15); Carbon Dioxide 26 mmol/L (20-30); Chloride 111 mmol/L (98-107); Potassium 3.9 mmol/L (3.5-5.1); Sodium 142 mmol/L (136-145)
[2023-11-19 06:50] LABS: Calcium 9.7 mg/dL (8.5-10.1)
[2023-11-19 06:55] LABS: BUN/Creatinine Ratio 15.1 (10.0-20.0); Blood Urea Nitrogen 16 mg/dL (9-23); Glucose 87 mg/dL (74-106)
[2023-11-19 08:00] VITALS: BP 144/68; PULSE 63; PULSE 69; RESP 18; TEMP 98.4; O2SAT 97
[2023-11-19 09:00] VITALS: BP 144/68; PULSE 69; RESP 18; TEMP 98.4; O2SAT 97
[2023-11-19] MEDS: FAMOTIDINE 20 MG TAB PO SCH (10:36)
[2023-11-19] MEDS: ENOXAPARIN SOD 40 MG/0.4 ML SYRINGE SC SCH (10:36)
[2023-11-19] MEDS: ASPirin 81 mg TAB PO SCH (10:36)
[2023-11-19] MEDS: amLODIPine BESYLATE 5 MG TAB PO SCH (10:37)
[2023-11-19] MEDS: CLOPIDOGREL BISULFATE 75 MG TAB PO SCH (10:37)
[2023-11-19] MEDS ORDERED: ASPI-628 PO (11:41)
[2023-11-19] MEDS ORDERED: CLOP75TA28 PO (11:41)
[2023-11-19 13:00] VITALS: BP 157/66; PULSE 83; RESP 16; TEMP 98.6; O2SAT 97
[2023-11-19 14:17] VITALS: BP 144/68; PULSE 73; RESP 16; TEMP 36.9; O2SAT 97
== END 2023-11-19 15:00 | disposition home or self-care (01) | DRG 65 ==
LOC: ER 09:48 → TELE 15:10 → TELE-CENTR 22:56
PROVIDERS: ADMIT Nurse Practitioner Family; ATTEND Internal Medicine Geriatric Medicine
PROC: B24BZZ4 Ultrasonography of Heart with Aorta, Transesophageal (ICD-10-PCS; principal; 2023-11-18)
DX: I63.9 Cerebral infarction, unspecified (principal); G81.94 Hemiplegia, unspecified affecting left nondominant side; N17.9 Acute kidney failure, unspecified; I10 Essential (primary) hypertension; E11.65 Type 2 diabetes mellitus with hyperglycemia; E66.9 Obesity, unspecified; E78.5 Hyperlipidemia, unspecified; G93.89 Other specified disorders of brain; H53.2 Diplopia; Z79.4 Long term (current) use of insulin; Z79.899 Other long term (current) drug therapy; Z86.73 Personal history of transient ischemic attack (TIA), and cerebral infarction without residual deficits; Z90.710 Acquired absence of both cervix and uterus; Z83.3 Family history of diabetes mellitus; Z82.3 Family history of stroke; Z68.28 Body mass index [BMI] 28.0-28.9, adult; Z82.49 Family history of ischemic heart disease and other diseases of the circulatory system; Z79.82 Long term (current) use of aspirin; Z79.02 Long term (current) use of antithrombotics/antiplatelets
CPT/HCPCS: 36415; 70450; 70496; 70551; 71045; 71275; 80048; 80053; 80061; 82962; 83036; 83735; 83880; 84100; 84443; 84478; 84484; 85025; 85379; 85610; 85730; 86592; 86850; 86900; 86901; 92610; 93005; 93306; 93312; 93886; 96360; 96372; 97110; 97116; 97163; 97530; 99152; 99291; G0378; J1815; J2250; J2405

== ENCOUNTER 2024-11-27 11:48 | Inpatient (IN) | payer OTHER ==
[~2024-11-27] VITALS: Ht 152.4 cm; Wt 68.7 kg
[~2024-11-27 11:48] MED LIST changes: +AML5T PO; +ASPI-628 PO; +CHOL100047 PO; +CLOP75TA28 PO; +INSU100I76 SC; +INSU50IN6 SC; +LOSA-535 PO; -LOSA100T58 PO
--- NOTE | 2024-11-27 12:12 | ED.PDOC ---
GI ASSESSMENT HPI Comments 74 year old female presents to the ED with chief complaint of rectal bleeding. Patient reports that she has been experiencing rectal bleeding for the past 3 days along with associated constipation. Patient relays that on the first day she had taken laxatives, which relieved her constipation, however, she soon started to experience her rectal bleeding. Patient states the blood is bright red and is not a large amount of blood. Patient notes she had passed some clots on the second day of her bleeding. Patient denies any abdominal pain, nausea, vomiting, diarrhea, fever, chills, or dizziness. Chief Complaint: GI Bleed Time Seen by MD: 12:08 Primary Care Provider: ANTHONY Reviewed Notes: Nurses Notes, Medications, Allergies Allergies: Coded Allergies: NO KNOWN ALLERGIES (Unverified , 04/14/20) Home Meds Active Scripts Aspirin (Aspirin Adult Low Dose) 81 Mg Tab, 81 MG PO DAILY for 100 Days, #100 TAB 3 Refills Prov:KARYNA DURAN MD 11/19/23 Clopidogrel Bisulfate (Plavix) 75 Mg Tab, 1 TAB PO DAILY, #21 TAB 0 Refills Prov:KARYNA DURAN MD 11/19/23 Reported Medications Amlodipine Besylate (NORVASC TABLET) 5 Mg Tb, 2 TAB PO DAILY, #30 TAB 5 Refills 11/13/23 Cholecalciferol (D3) 1,000 Unit Cap, 1000 UNIT PO DAILY, CAP 11/13/23 Clopidogrel Bisulfate (Plavix) 75 Mg Tab, 75 MG PO DAILY, TAB 11/13/23 Insulin Degludec (Insulin Degludec) 100 Unit/Ml Inj, 34 UNIT SC HS, INJ 11/13/23 Insulin Lispro (Human) (Humalog Kwikpen) 200 Unit/Ml Inj, 7 UNIT SC TID, INJ 11/13/23 Losartan Potassium (Losartan Potassium) 100 Mg Tab, 1 TAB PO DAILY, #30 TAB 5 Refills 04/15/20 Atorvastatin Calcium (ATORVASTATIN CALCIUM) 10 Mg Tab, 1 TAB PO HS, #30 TAB 5 Refills 04/15/20 Information Source: Patient Mode of Arrival: Ambulatory Timing: Days Duration: Since onset Prehospital treatment: None Quality: None Vomitus: None Stool: Impaction, Blood Streaked Severity: Moderate Recent: None Recent Hx of: None Pain Location: None Modifying Factors: Nothing Associated sign and symptoms: Constipation, Blood in Stool Past Medical History PAST MEDICAL HISTORY: CVA, DM, High Lipids, HTN Surgical History: Hysterectomy AS400 CONSULTANT History: No Pertinent AS400 CONSULTANT History Family History Family History: Family hx of DM, Family hx of Cancer, Family hx of stroke Social History Smoker: Non-Smoker Alcohol: Denies ETOH Use Drugs: Denies Drug Use Lives In: Home Constitutional: denies: chills, diaphoresis, fatigue, fever, malaise, sweats, weakness, others EENTM: denies: blurred vision, double vision, ear bleeding, ear discharge, ear drainage, ear pain, ear ringing, eye pain, eye redness, hearing loss, mouth pain, mouth swelling, nasal discharge, nose bleeding, nose congestion, nose pain, photophobia, tearing, throat pain, throat swelling, voice changes, others Respiratory: denies: cough, hemoptysis, orthopnea, SOB at rest, shortness of breath, SOB with excertion, stridor, wheezing, others Cardiovascular: denies: chest pain, dizzy spells, diaphoresis, Dyspnea on exertion, edema, irregular heart beat, left arm pain, lightheadedness, palpita tions, PND, syncope, others Gastrointestinal: reports: constipated, rectal bleeding; denies: abdomen distended, abdominal pain, blood streaked bowels, diarrhea, dysphagia, difficulty swallowing, hematemesis, melena, nausea, poor appetite, poor fluid intake, rectal pain, vomiting, others Genitourinary: denies: abnormal vagina bleeding, burning, dyspareunia, dysuria, flank pain, frequency, hematuria, incontinence, pain, , vagina discharge, urgency, others Neurological: denies: dizziness, fainting, headache, left sided numbness, left sided weakness, numbness, paresthesia, pre-existing deficit, right sided numbness, right sided weakness, seizure, speech problems, tingling, tremors, weakness, others Musculoskeletal: denies: back pain, gout, joint pain, joint swelling, muscle pain, muscle stiffness, neck pain, others Integumetry: denies: bruises, change in color, change in hair/nails, dryness, laceration, lesions, lumps, rash, wounds, others Allergic/Immunocompromised: denies: Difficulty Healing, Frequent Infections, Hives, Itching, others Hematologic/Lymphatic: denies: anemia, blood clots, easy bleeding, easy bruising, swollen glands, others Endocrine: denies: excessive hunger, excessive sweating, excessive thirst, excessive urination, flushing, intolerance to cold, intolerance to heat, unexpla ined weight gain, unexplained weight loss, others Psychiatric: denies: anxiety, bipolar disorder, depression, hopeless, panic disorder, schizophrenia, sleepless, suicidal, others All Other Systems: Reviewed and Negative Physical Exam General Appearance: Mild Distress HEENT: Normal ENT Inspection, Pharynx Normal, TMs Normal Neck: Full Range of Motion, Non-Tender, Normal, Normal Inspection Respiratory: Chest Non-Tender, Lungs Clear, No Accessory Muscle Use, No Respiratory Distress, Normal Breath Sounds Cardiovascular: No Edema, No JVD, No Murmur, No Gallop, Normal Peripheral Pulses, Regular Rate/Rhythm Breast Exam: Deferred Gastrointestinal: LLQ, No Organomegaly, No Pulsatile Mass, Normal Bowel Sounds, RLQ, Soft, Tenderness Genitalia: Deferred Pelvic: Deferred Rectal: Deferred Extremities: No calf tenderness, Normal capillary refill, Normal inspection, Normal range of motion, Non-tender, No pedal edema Musculoskeletal : Apperance: Normal Neurologic: Alert, straw hat presser II-XII nml as Tested, No Motor Deficits, Normal Affect, Normal Mood, No Sensory Deficits Cerebellar Function: Normal Reflexes: Normal Skin: Dry, Normal Color, Warm Lymphatic: No Adenopathy Was a procedure done? Was a procedure done?: No GI differential Dx Differential Diagnosis: Diverticular disease, Gastritis/PUD, Gastroenteritis, UTI X-Ray, Labs, Meds, VS Vital Signs Date Time Temp Pulse Resp B/P (MAP) Pulse Ox O2 Delivery O2 Flow Rate FiO2 11/27/24 12:03 98.3 101 20 155/86 (109) 95 Lab Test 11/27/24 12:58 Range/Units White Blood Count 12.7 H 4.4-10.8 10^3/uL Red Blood Count 3.95 L 4.0-5.20 10^6/uL Hemoglobin 13.0 12.2-16.2 g/dL Hematocrit 38.9 36.0-46.0 % Mean Corpuscular Volume 98.4 80.0-100.0 fL Mean Corpuscular Hemoglobin 33.0 H 28.0-32.0 pg Mean Corpuscular Hemoglobin Concent 33.5 32.0-36.0 g/dL Red Cell Distribution Width 14.2 11.8-14.3 % Platelet Count 265 140-450 10^3/uL Mean Platelet Volume 9.8 6.9-10.8 fL Neutrophils (%) (Auto) 82.6 H 37.0-80.0 % Lymphocytes (%) (Auto) 11.8 10.0-50.0 % Monocytes (%) (Auto) 3.5 0.0-12.0 % Eosinophils (%) (Auto) 1.4 0.0-7.0 % Basophils (%) (Auto) 0.7 0.0-2.0 % Neutrophils # (Auto) 10.5 H 1.6-8.6 10 ^3/uL Lymphocytes # (Auto) 1.5 0.4-5.4 10 ^3/uL Monocytes # (Auto) 0.5 0-1.3 10 ^3/uL Eosinophils # (Auto) 0.2 0-0.8 10 ^3/uL Basophils # (Auto) 0.1 0-0.2 10 ^3/uL Nucleated Red Blood Cells 0.0 % Prothrombin Time 10.0 9.3-11.8 sec Prothrombin Time INR 0.94 0.9-1.15 Activated Partial Thromboplast Time 24.2 L 24.5-34.5 SEC Sodium Level 138 136-145 mmol/L Potassium Level 4.4 3.5-5.1 mmol/L Chloride Level 104 98-107 mmol/L Carbon Dioxide Level 27 20-31 mmol/L Anion Gap 7 5-15 Blood Urea Nitrogen 23 9-23 mg/dL Creatinine 1.10 H 0.550-1.02 mg/dL Glomerular Filtration Rate Calc 52 >90 mL/min BUN/Creatinine Ratio 20.9 H 10.0-20.0 Serum Glucose 311 H 74-106 mg/dL Calcium Level 11.0 H 8.7-10.4 mg/dL CT Abd/Pel indicates: 1. Colonic diverticulosis with no CT evidence for diverticulitis. 2. Small hiatal hernia. 3. Small to moderate fat containing umbilical hernia. The patient's CBC shows an elevated white blood cell count of 12.7 The rest of the CBC is within normal limits The chemistry panel is within normal limits The glucose is 311 We are concerned that the patient was on Plavix and the bleeding has increased We are going to admit the patient for evaluation further of the lower GI bleed The patient understands and agrees with the management. Images Reviewed?: Images reviewed and evaluated by me Time of 1ST Reevaluation: 14:20 Reevaluation 1ST: Unchanged Patient Education/Counseling: Diagnosis, Treatment, Prognosis Family Education/Counseling: No Family Present Additional Information - I reviewed the following notes from patient's past medical encounters: 11/13/23 for CVA - The following tests were ordered, and results were reviewed by me: (Labs, X- Ray, EKG): CBC, BMP, PTPTT, CT Abd/Pel - Additional information was gathered from interviewing the following independent Historian: (Family, Other Providers, EMT): None - I reviewed and agreed with the following test results read by other provider: (X-ray, CT, US): CT Abd/Pel - I discussed treatments and results with medical personnel. Departure 1 Departure Time of Disposition: 14:19 Impression: Primary Impression: Abdominal pain Qualified Codes: R10.9 - Unspecified abdominal pain Additional Impression: Lower GI bleed Disposition: ADMITTED INPATIENT Admit to: Med Surg Condition: Fair Critical Care Note Critical Care Time?: No Stability Stability form required: Yes Unstable for transfer: ED Physician Assesment (Clinical assesment) Heart Score Heart Score: Heart Score Response (Comments) Value History N/A 0 EKG N/A 0 Age N/A 0 Risk Factors N/A 0 Troponin N/A 0 Total 0 I personally scribed for GRAYSON LIM MD ([email or web address]) on 11/27/24 at 12:12. Electronically submitted by Ebenezer Kaur ([email or web address]). I personally scribed for GRAYSON LIM MD ([email or web address]) on 11/27/24 at 12:49. Electronically submitted by Ebenezer Kaur ([email or web address]). GRAYSON LIM MD Nov 27, 2024 12:12
--- NOTE | 2024-11-27 12:40 | DVH ---
CLINICAL INFORMATION: 74 years old, Female; lower gi bleed. TECHNIQUE: Axial CT images of the abdomen and pelvis were obtained without IV contrast. Coronal and sagittal reformatted images were obtained, reviewed, and stored. Evaluation of the parenchymal organs is limited without IV contrast. Evaluation of the bowel and mesentery is limited without oral contra st. All CT scans at this medical facility are performed using dose modulation techniques as appropria te to a performed exam including the following: Automated exposure control was utilized; adjustment o f the MA and/or KV according to patient size; and use of iterative reconstruction technique. CTDIvol = 12.39 mGy DLP = 605.48 mGy-cm COMPARISON: None FINDINGS: Lung bases: Lung bases are clear. Liver: Grossly unremarkable in its noncontrast enhanced appearance. No abnormal density or focal les ion identified. Biliary: No calcified gallstones or biliary ductal dilatation. Spleen: Unremarkable. Pancreas: Grossly unremarkable in its noncontrast enhanced appearance. Adrenal glands: Unremarkable. No mass. Kidneys: No hydronephrosis. No renal or ureteral calculi. Aorta/Vascular: Dense atherosclerotic calcification. No abdominal aortic aneurysm. Retroperitoneum: No mass or lymphadenopathy. Bowel/mesentery: Small hiatal hernia. No small bowel obstruction. Appendix is visualized and appears unremarkable. Colonic diverticulosis with no CT evidence for diverticulitis. Pelvic organs: Uterus is surgically absent. Bladder: Unremarkable. No mass. Abdominal wall: Small to moderate fat containing umbilical hernia. Bones: No acute fracture or suspicious intraosseous lesion. IMPRESSION: 1. Colonic diverticulosis with no CT evidence for diverticulitis. 2. Small hiatal hernia. 3. Small to moderate fat containing umbilical hernia.
[2024-11-27 13:13] LABS: Basophils # (auto) 0.1 10 ^3/uL (0-0.2); Basophils % (auto) 0.7 % (0.0-2.0); Eosinophils # (auto) 0.2 10 ^3/uL (0-0.8); Eosinophils % (auto) 1.4 % (0.0-7.0); Hematocrit 38.9 % (36.0-46.0); Lymphocytes # (auto) 1.5 10 ^3/uL (0.4-5.4); Lymphocytes % (auto) 11.8 % (10.0-50.0); Mean Corpuscular Hgb Conc. 33.5 g/dL (32.0-36.0); Mean Corpuscular Volume 98.4 fL (80.0-100.0); Monocytes # (auto) 0.5 10 ^3/uL (0-1.3); Monocytes % (auto) 3.5 % (0.0-12.0); Neutrophils # (auto) 10.5 10 ^3/uL (1.6-8.6); Neutrophils % (auto) 82.6 % (37.0-80.0); Platelet Count (auto) 265 10^3/uL (140-450); Red Blood Cells 3.95 10^6/uL (4.0-5.20); Red Cell Distribution Width 14.2 % (11.8-14.3); White Blood Cell 12.7 10^3/uL (4.4-10.8)
[2024-11-27 13:33] LABS: Chloride 104 mmol/L (98-107); Potassium 4.4 mmol/L (3.5-5.1); Sodium 138 mmol/L (136-145)
[2024-11-27 13:34] LABS: Anion Gap 7 (5-15); Carbon Dioxide 27 mmol/L (20-31)
[2024-11-27 13:39] LABS: BUN/Creatinine Ratio 20.9 (10.0-20.0)
[2024-11-27 13:50] LABS: INR 0.94 (0.9-1.15); Partial Thromboplastin Time 24.2 SEC (24.5-34.5)
[2024-11-27 13:51] LABS: Blood Urea Nitrogen 23 mg/dL (9-23); Glucose 311 mg/dL (74-106)
[2024-11-27] MEDS ORDERED: hydrALAZINE HCL 20 MG/ML VL IV PRN (21:30)
[2024-11-27] MEDS ORDERED: DEXTROSE (50%) 50ML SYRG IV PRN (21:30)
[2024-11-27] MEDS ORDERED: ONDANSETRON HCL 4 MG/2 ML VIAL IV PRN (21:30)
[2024-11-27] MEDS ORDERED: HYDROcodone-ACET 5/325MG TAB PO PRN (21:30)
[2024-11-27] MEDS ORDERED: DOCUSATE SOD 100 MG CAP PO PRN (21:30)
[2024-11-27] MEDS ORDERED: ACETAMINOPHEN 325 MG TAB PO PRN (21:30)
[2024-11-27] MEDS: SODIUM CHLORIDE 0.9% 1,000 ML IV SCH (22:37)
[2024-11-27 22:40] VITALS: PULSE 92; RESP 18; O2SAT 97
[2024-11-27] MEDS: ATORVASTATIN 20 MG TAB PO SCH (22:52)
[2024-11-27] MEDS: cefTRIAXone 1GM/50ML D5W 50 ML IV ONE (22:52)
--- NOTE | 2024-11-27 23:33 | DVHHP2 ---
History of Present Illness Reason for Visit: GI bleed History of Present Illness The patient is a 74-year-old female with past medical history of DM, CVA, hypertension, and hyperlipidemia who presented to [facility] ED with complaint of rectal bleeding. Patient reports she has been experiencing rectal bleeding for the past 3 days associated with constipation. Patient was seen and evaluated in the ED, laboratory data shows WBC 12.7, hemoglobin 13.0, hematocrit 38.9, platelets 265, sodium 138, potassium 4.4, BUN 23, creatinine 1.10, GFR 52, glucose 311, calcium 11.0, blood pressure 136/67, heart rate 90, temperature 98.0 F, O2 saturation 96% on room air. Abdomen/pelvis CT revealing colonic d iverticulosis with no evidence for diverticulitis, small hiatal hernia, small to moderate fat containing umbilical hernia. Please see medication orders section in the computer. On my assessment, patient denies chest pain, no headache, no dizziness, no abdominal pain, no diarrhea, no nausea, no vomiting, no fever, no chills. Patient was admitted for further evaluation and medical management. Past Medical History CVA, DM, High Lipids, HTN Past Surgical History Hysterectomy Family History Reviewed, noncontributory to the management of this case. Past Social History The patient lives at home, denies smoking, alcohol or illicit drugs abuse. Review of Systems Constitutional: No: Fever, Chills, Sweats, Weakness, Malaise, Other Eyes: No: Pain, Vision change, Conjunctivae inflammation, Eyelid inflammation, Other, Redness ENT: No: Ear pain, Ear discharge, Nose pain, Nose discharge, Nose congestion, Mouth pain, Mouth swelling, Throat pain, Throat swelling, Other Respiratory: No: Cough, Dry, Shortness of breath, SOB with excertion, Wheezing, Hemoptysis, Pleuritic Pain, Sputum, Wheezing, Other Cardiovascular: No: Chest Pain, Palpitations, Orthopnea, Paroxysmal Noc. Dyspnea, Edema, Lt Headedness, Other Gastrointestinal: Constipation, Other (Rectal bleeding); No: Nausea, Vomiting, Abdominal Pain, Diarrhea, Melena, Hematochezia Genitourinary: No Dysuria, No Frequency, No Incontinence, No Hematuria, No Retention, No Other Musculoskeletal: No: other, neck pain, shoulder pain, arm pain, back pain, hand pain, leg pain, foot pain Skin: No: Rash, Lesions, Jaundice, Bruising, Other Neurological: No: Weakness, Numbness, Incoordination, Change in speech, Confusion, Seizures, Other Allergies: Coded Allergies: NO KNOWN ALLERGIES (Unverified , 04/14/20) Medications Current Medications Medications Dose Ordered Sig/James Route Start Time Stop Time Status Last Admin Dose Admin Amlodipine Besylate 5 mg DAILY PO 11/28/24 10:00 Hydralazine HCl 10 mg Q6HP PRN IV 11/27/24 21:30 Ceftriaxone Sodium 50 ml @ 100 mls/hr DAILY@09 IV 11/28/24 09:00 Atorvastatin Calcium 10 mg HS PO 11/27/24 22:00 11/27/24 22:52 10 MG Diagnostic Test (Pha) 1 strip IQ4HR 11/28/24 00:00 Insulin Human Regular IQ4HR SC 11/28/24 00:00 Dextrose 50 ml UD PRN IV 11/27/24 21:30 Sodium Chloride 1,000 ml @ 60 mls/hr [id number] IV 11/27/24 21:30 Acetaminophen/ Hydrocodone Bitart 1 tab Q4HP PRN PO 11/27/24 21:30 Ondansetron HCl 4 mg Q4HP PRN IV 11/27/24 21:30 Docusate Sodium 100 mg BIDPRN PRN PO 11/27/24 21:30 Acetaminophen 650 mg Q6HP PRN PO 11/27/24 21:30 Exam Vital Signs Vital Signs Date Time Temp Pulse Resp B/P (MAP) Pulse Ox O2 Delivery O2 Flow Rate FiO2 11/27/24 22:40 98.5 92 18 136/83 (100) 97 98.5 11/27/24 22:40 Room Air* 0 21 General Appearance: Alert, Oriented X3, Cooperative, No acute distress HEENT: Atraumatic, PERRLA, EOMI, Mucous membr. moist/pink Respiratory: Clear to auscultation, Normal air movement Cardiovascular: Regular rate, Normal S1, Normal S2, No murmurs Abdominal: Normal bowel sounds, Soft, No tenderness, No hepatospenomegaly, No masses Extremities: No clubbing, No cyanosis, No edema, Normal pulses, No tenderness/swelling Skin: No rashes, No breakdown, No significant lesion Neuro: Normal gait, Normal speech, Strength at 5/5 X4 ext, Normal tone, Sensation intact, Cranial nerves 3-12 NL, Reflexes 2+ Psych/Mental Status: Mental status NL, Mood NL Labs/Xrays Labs Test 11/27/24 12:58 Range/Units White Blood Count 12.7 H 4.4-10.8 10^3/uL Red Blood Count 3.95 L 4.0-5.20 10^6/uL Hemoglobin 13.0 12.2-16.2 g/dL Hematocrit 38.9 36.0-46.0 % Mean Corpuscular Volume 98.4 80.0-100.0 fL Mean Corpuscular Hemoglobin 33.0 H 28.0-32.0 pg Mean Corpuscular Hemoglobin Concent 33.5 32.0-36.0 g/dL Red Cell Distribution Width 14.2 11.8-14.3 % Platelet Count 265 140-450 10^3/uL Mean Platelet Volume 9.8 6.9-10.8 fL Neutrophils (%) (Auto) 82.6 H 37.0-80.0 % Lymphocytes (%) (Auto) 11.8 10.0-50.0 % Monocytes (%) (Auto) 3.5 0.0-12.0 % Eosinophils (%) (Auto) 1.4 0.0-7.0 % Basophils (%) (Auto) 0.7 0.0-2.0 % Neutrophils # (Auto) 10.5 H 1.6-8.6 10 ^3/uL Lymphocytes # (Auto) 1.5 0.4-5.4 10 ^3/uL Monocytes # (Auto) 0.5 0-1.3 10 ^3/uL Eosinophils # (Auto) 0.2 0-0.8 10 ^3/uL Basophils # (Auto) 0.1 0-0.2 10 ^3/uL Nucleated Red Blood Cells 0.0 % Prothrombin Time 10.0 9.3-11.8 sec Prothrombin Time INR 0.94 0.9-1.15 Activated Partial Thromboplast Time 24.2 L 24.5-34.5 SEC Sodium Level 138 136-145 mmol/L Potassium Level 4.4 3.5-5.1 mmol/L Chloride Level 104 98-107 mmol/L Carbon Dioxide Level 27 20-31 mmol/L Anion Gap 7 5-15 Blood Urea Nitrogen 23 9-23 mg/dL Creatinine 1.10 H 0.550-1.02 mg/dL Glomerular Filtration Rate Calc 52 >90 mL/min BUN/Creatinine Ratio 20.9 H 10.0-20.0 Serum Glucose 311 H 74-106 mg/dL Calcium Level 11.0 H 8.7-10.4 mg/dL PATIENT: GINNY RONQUILLO ACCT: [id number] UNIT: [id number] : 1950 LOC: ER ROOM / BED: / AGE / SEX: 74 / F ADM STATUS: REG ER SERVICE 1208 ORDERING PHYSICIAN: GRAYSON LIM MD PROCEDURE(s): ABPL - CT AB PEL WO CON-NO ORAL OR IV REASON: lower gi bleed ORDER NUMBER(s): [id number], ACCESSION NUMBER(s): [id number] CLINICAL INFORMATION: 74 years old, Female; lower gi bleed. TECHNIQUE: Axial CT images of the abdomen and pelvis were obtained without IV c ontrast. Coronal and sagittal reformatted images were obtained, reviewed, and stored. Evaluation of the parenchymal organs is limited without IV contrast. Evaluation of the bowel and mesentery is limited without oral contrast. All CT scans at this medical facility are performed using dose modulation techniques as appropriate to a performed exam including the following: Automated exposure control was utilized; adjustment of the MA and/or KV according to patient size; and use of iterative reconstruction technique. CTDIvol = 12.39 mGy DLP = 605.48 mGy-cm COMPARISON: None FINDINGS: Lung bases: Lung bases are clear. Liver: Grossly unremarkable in its noncontrast enhanced appearance. No abnormal density or focal lesion identified. Biliary: No calcified gallstones or biliary ductal dilatation. Spleen: Unremarkable. Pancreas: Grossly unremarkable in its noncontrast enhanced appearance. Adrenal glands: Unremarkable. No mass. Kidneys: No hydronephrosis. No renal or ureteral calculi. Aorta/Vascular: Dense atherosclerotic calcification. No abdominal aortic aneurysm. Retroperitoneum: No mass or lymphadenopathy. Bowel/mesentery: Small hiatal hernia. No small bowel obstruction. Appendix is visualized and appears unremarkable. Colonic diverticulosis with no CT evidence for diverticulitis. Pelvic organs: Uterus is surgically absent. Bladder: Unremarkable. No mass. Abdominal wall: Small to moderate fat containing umbilical hernia. Bones: No acute fracture or suspicious intraosseous lesion. IMPRESSION: 1. Colonic diverticulosis with no CT evidence for diverticulitis. 2. Small hiatal hernia. 3. Small to moderate fat containing umbilical hernia. Assessment/Plan Assessment/Plan Lower GI bleed Abdominal pain Unspecified abdominal pain Plan 1. Admit to telemetry unit 2. Breathing treatment 3. Pain control management 4. Management of fluids and electrolytes 5. Consultation for hospitalized 6. Diagnostic tests abdomen/pelvis CT 7. DVT prophylaxis-on SCDs 8. Repeat labs CBC, CMP in a.m. 9. Continue with current medical management 10. Treatment plan discussed with patient and RN. Patient verbalized understanding. Plan discussed with: Patient, Other (RN) My Orders Orders - JESSE DAVENPORT DNP Procedure Category Date Status Time Consistent DIET 11/28/24 Transmitted Carb(Ccho)Diabetes Breakfast Amlodipine Tablet PHA 11/28/24 In Process (Norvasc Tablet) 10:00 Hydralazine Injection PHA 11/27/24 In Process (Apresoline Inject 21:30 Ceftriaxone 1gm/50ml PHA 11/28/24 In Process D5w (Rocephin) 09:00 Atorvastatin (Lipitor) PHA 11/27/24 In Process 22:00 * Gi Dvh Table Filler CONS 11/27/24 Transmitted 21:21 Glucose Blood PHA 11/28/24 In Process (Accu-Chek Comfort 00:00 Insulin R (Human) PHA 11/28/24 In Process (Insulin R) 00:00 Dextrose 50% Syringe PHA 11/27/24 In Process 21:30 Allergies MADY 11/27/24 In Process 21:21 Code Status CODE 11/27/24 Transmitted 21:21 Sodium Chloride 0.9% PHA 11/27/24 In Process 21:30 Oxygen Per Hour RT 11/27/24 Transmitted 21:21 Hydrocodone-Acet PHA 11/27/24 In Process 5/325mg Tab ([place] 21:30 Ondansetron Hcl PHA 11/27/24 In Process (Zofran) 21:30 Docusate Sodium PHA 11/27/24 In Process Capsule (Colace 21:30 Complete Blood Count LAB 11/28/24 Verified 04:00 Comprehensive LAB 11/28/24 Verified Metabolic Panel 04:00 Condition: Serious MADY 11/27/24 In Process 21:21 Acetaminophen Tablet PHA 11/27/24 In Process (Tylenol Tablet) 21:30 Bedrest With Bathroom MADY 11/27/24 In Process Privileg 21:21 Sequential MADY 11/27/24 In Process Compression Device Problem List: (1) Lower GI bleed (2) Abdominal pain (3) Unspecified abdominal pain Date of Service: Nov 27, 2024 Billing Provider: JESSE DAVENPORT DNP Common Visit Codes: [id number] INP/OBS CARE (HIGH) JESSE DAVENPORT DNP Nov 27, 2024 23:32
[2024-11-27] MEDS: ACCU-CHEK COMFORT CURVE STRIP VI SCH (23:39)
[2024-11-27] MEDS: InsuLIN REG 1unit/0.01ml Soln (100units/ml) SC SCH (23:39)
[2024-11-27] MEDS ORDERED: NITROGLYCERIN 0.4 MG SL TAB SL PRN (23:45)
[2024-11-27] MEDS ORDERED: MORPHINE SULFATE INJ 2 MG/ml SYRG IV PRN (23:45)
[2024-11-28] VITALS (8 sets, daily range): BP systolic 106–136; BP diastolic 52–65; PULSE 65–94; RESP 15–18; TEMP 97.4–98.7; O2SAT 92–97
[2024-11-28] MEDS ORDERED: SODI650T PO (04:18)
[2024-11-28] MEDS ORDERED: INSU100I74 SC (04:18)
[2024-11-28] MEDS: cefTRIAXone 1GM/50ML D5W 50 ML IV SCH (08:38)
[2024-11-28] MEDS: amLODIPine BESYLATE 5 MG TAB PO SCH (08:48)
[2024-11-28 11:27] LABS: Basophils # (auto) 0 10 ^3/uL (0-0.2); Basophils % (auto) 0.4 % (0.0-2.0); Eosinophils # (auto) 0.1 10 ^3/uL (0-0.8); Eosinophils % (auto) 1.1 % (0.0-7.0); Hematocrit 29.8 % (36.0-46.0); Lymphocytes # (auto) 1.2 10 ^3/uL (0.4-5.4); Lymphocytes % (auto) 10.8 % (10.0-50.0); Mean Corpuscular Hemoglobin 33.1 pg (28.0-32.0); Mean Corpuscular Hgb Conc. 33.6 g/dL (32.0-36.0); Mean Corpuscular Volume 98.5 fL (80.0-100.0); Monocytes # (auto) 0.4 10 ^3/uL (0-1.3); Monocytes % (auto) 3.6 % (0.0-12.0); Neutrophils % (auto) 84.1 % (37.0-80.0); Platelet Count (auto) 223 10^3/uL (140-450); Red Blood Cells 3.02 10^6/uL (4.0-5.20); Red Cell Distribution Width 14.5 % (11.8-14.3); White Blood Cell 10.7 10^3/uL (4.4-10.8)
[2024-11-28 11:50] LABS: Alanine Aminotransferase 11 U/L (7-40); Albumin 3.7 g/dL (3.2-4.8); Alkaline Phosphatase 80 U/L (46-116); Anion Gap 9 (5-15); Bilirubin, Total 0.3 mg/dL (0.2-1.0); Carbon Dioxide 24 mmol/L (20-31); Chloride 104 mmol/L (98-107); Potassium 4.3 mmol/L (3.5-5.1); Sodium 137 mmol/L (136-145)
[2024-11-28 11:53] LABS: Aspartate Aminotransferase 11 U/L (13-40); Blood Urea Nitrogen 30 mg/dL (9-23); Calcium 10.6 mg/dL (8.7-10.4); Glucose 308 mg/dL (74-106)
--- NOTE | 2024-11-28 12:06 | DVHPN2 ---
Subjective Came for 3 days of rectal bleeding She is taking ASA and Plavix at home Changes from previous H/P or p: Changes Objective Vitals Vital Signs Date Time Temp Pulse Resp B/P (MAP) Pulse Ox O2 Delivery O2 Flow Rate FiO2 11/28/24 09:00 97.7 65 16 116/57 (76) 93 97.7 11/28/24 08:05 Room Air* 0 21 Intake/Output Intake and Output 11/28/24 06:59 Intake Total 250 ml Balance 250 ml Intake Oral 200 ml IV Total 50 ml # Voids 3 General Appearance: Alert, Oriented X3, Cooperative, No acute distress Lungs: Clear to auscultation, Normal air movement Cardiovascular: Regular rate, Normal S1 Abdomen: Normal bowel sounds, Soft Extremities: No edema Medications Current Medications Medications Dose Ordered Sig/James Route Start Time Stop Time Status Last Admin Dose Admin Amlodipine Besylate 5 mg DAILY PO 11/28/24 10:00 11/28/24 08:48 5 MG Hydralazine HCl 10 mg Q6HP PRN IV 11/27/24 21:30 Ceftriaxone Sodium 50 ml @ 100 mls/hr DAILY@09 IV 11/28/24 09:00 11/28/24 08:38 100 MLS/HR Atorvastatin Calcium 10 mg HS PO 11/27/24 22:00 11/27/24 22:52 10 MG Diagnostic Test (Pha) 1 strip IQ4HR 11/28/24 00:00 11/28/24 08:28 1 STRIP Insulin Human Regular IQ4HR SC 11/28/24 00:00 11/28/24 08:38 3 UNITS Dextrose 50 ml UD PRN IV 11/27/24 21:30 Acetaminophen/ Hydrocodone Bitart 1 tab Q4HP PRN PO 11/27/24 21:30 Ondansetron HCl 4 mg Q4HP PRN IV 11/27/24 21:30 Docusate Sodium 100 mg BIDPRN PRN PO 11/27/24 21:30 Acetaminophen 650 mg Q6HP PRN PO 11/27/24 21:30 Nitroglycerin 0.4 mg Q5MINP PRN SL 11/27/24 23:45 Morphine Sulfate 2 mg Q30M PRN IV 11/27/24 23:45 Pantoprazole Sodium 40 mg BID IV 11/28/24 22:00 Laboratory Results Laboratory Tests 11/28/24 10:45 Chemistry Test 2/7/25 12:58 11/28/24 10:45 Calcium Level 11.0 mg/dL (8.7-10.4) H 10.6 mg/dL (8.7-10.4) H Albumin 3.7 g/dL (3.2-4.8) Total Protein 6.0 g/dL (5.7-8.2) Coagulation Test 11/27/24 12:58 Prothrombin Time 10.0 sec (9.3-11.8) Prothrombin Time INR 0.94 (0.9-1.15) Activated Partial Thromboplast Time 24.2 SEC (24.5-34.5) L LFT Test 11/28/24 10:45 Alanine Aminotransferase (ALT) 11 U/L (7-40) Alkaline Phosphatase 80 U/L (46-116) Aspartate Amino Transferase (AST) 11 U/L (13-40) L Total Bilirubin 0.3 mg/dL (0.2-1.0) Assessment/Plan Assessment/Plan Lower GI bleed H/O CVA on ASA and Plavix h/o multiple CVAs HTN DM2 Mixed hyperlipidemia PLAN: GI consult Protonix IV Hold Plavix and ASA Monitor Hb Plan discussed with: Patient My Orders Orders - KARYNA DURAN MD Procedure Category Date Status Time Pantoprazole PHA 11/28/24 In Process (Protonix) 22:00 Glucose Blood PHA 11/28/24 Verified (Accu-Chek Comfort 17:00 Moderate Insulin Ss PHA 11/28/24 Verified 17:00 Date of Service: Nov 28, 2024 Billing Provider: KARYNA DURAN MD Common Visit Codes: NOT BILLABLE KARYNA DURAN MD Nov 28, 2024 12:06
[2024-11-28] MEDS: PANTOPRAZOLE 40 MG/10 ML VIAL INJ IV ONE (12:41)
[2024-11-28] MEDS: SUCRALFATE 1 GM/10 ML ORAL SUSP PO SCH (14:13)
--- NOTE | 2024-11-28 16:07 | DVHCONRES ---
Date Seen: Nov 28, 2024 Resident Creating Document: CHRISTOPHER HAMPTON RESIDENT History of Present Illness 74 year old female with a history of multiple CVAs, on aspirin and Brilinta presents to the ED with chief complaint of rectal bleeding. Patient reports that she has been experiencing rectal bleeding for the past 3 days along with associated constipation. Patient relays that on the first day she had taken laxatives, which relieved her constipation, however, she soon started to experience her rectal bleeding. Patient states the blood is bright red and is not a large amount of blood. Patient notes she had passed some clots on the second day of her bleeding. Patient denies any abdominal pain, nausea, vomiting, diarrhea, fever, chills, or dizziness. Patient seen and examined at the bedside. CT abdomen negative for acute intra- abdominal pathology. Family History: Cerebrovascular accident (CVA) G8 SISTER, Onset:60 years & older Diabetes mellitus G8 MOTHER, Onset:50's - 60 G8 BROTHER, Onset:40's - 50 G8 SISTER, Onset:40's - 50 Hypertension G8 FATHER, Onset:40's - 50 Allergies: Coded Allergies: NO KNOWN ALLERGIES (Unverified , 04/14/20) Home Meds Active Scripts Aspirin (Aspirin Adult Low Dose) 81 Mg Tab, 81 MG PO DAILY for 100 Days, #100 TAB 3 Refills Prov:KARYNA DURAN MD 11/19/23 Reported Medications Sodium Bicarbonate (Sodium Bicarbonate) 650 Mg Tab, 1 TAB PO TID 11/28/24 Insulin Glargine (Insulin Glargine Solostar) 100 Unit/Ml Inj, 30 UNIT SC HS, INJ 11/28/24 Amlodipine Besylate (NORVASC TABLET) 5 Mg Tb, 2 TAB PO DAILY, #30 TAB 5 Refills 11/13/23 Cholecalciferol (D3) 1,000 Unit Cap, 1000 UNIT PO DAILY, CAP 11/13/23 Clopidogrel Bisulfate (Plavix) 75 Mg Tab, 75 MG PO DAILY, TAB 11/13/23 Insulin Lispro (Human) (Humalog Kwikpen) 200 Unit/Ml Inj, 10 UNIT SC TID, INJ 11/13/23 Losartan Potassium (Losartan Potassium) 100 Mg Tab, 1 TAB PO DAILY, #30 TAB 5 Refills 04/15/20 Atorvastatin Calcium (ATORVASTATIN CALCIUM) 10 Mg Tab, 20 MG PO HS, #30 TAB 5 Refills 04/15/20 Current Medications Current Medications Medications (Trade) Dose Ordered Sig/James Route PRN Reason Start Time Stop Time Status Last Admin Amlodipine Besylate (Norvasc Tablet) 5 mg DAILY PO 11/28/24 10:00 11/28/24 08:48 Hydralazine HCl (Apresoline Injection) 10 mg Q6HP PRN IV SBP>150 11/27/24 21:30 Ceftriaxone Sodium 50 ml @ 100 mls/hr DAILY@09 IV 11/28/24 09:00 11/28/24 08:38 Atorvastatin Calcium (Lipitor) 10 mg HS PO 11/27/24 22:00 11/27/24 22:52 Diagnostic Test (Pha) (Accu-Chek Comfort Curve T) 1 strip IQ4HR 11/28/24 00:00 11/28/24 12:04 DC 11/28/24 08:28 Insulin Human Regular (InsuLIN R) IQ4HR SC 11/28/24 00:00 11/28/24 12:04 DC 11/28/24 08:38 Dextrose 50 ml UD PRN IV Blood Sugar LESS THAN 60 11/27/24 21:30 Sodium Chloride 1,000 ml @ 60 mls/hr [id number] IV 11/27/24 21:30 11/28/24 12:02 DC Acetaminophen/ Hydrocodone Bitart ([place] 5/325MG Tab) 1 tab Q4HP PRN PO MODERATE PAIN (4-6 PAIN SCALE) 11/27/24 21:30 Ondansetron HCl (Zofran) 4 mg Q4HP PRN IV NAUSEA / VOMITING 11/27/24 21:30 Docusate Sodium (Colace Capsule) 100 mg BIDPRN PRN PO FOR CONSTIPATION 11/27/24 21:30 Acetaminophen (Tylenol Tablet) 650 mg Q6HP PRN PO PAIN SCALE 1-3 OR TEMP>100.4 11/27/24 21:30 Nitroglycerin (Ntrostat Sublingual) 0.4 mg Q5MINP PRN SL FOR CHEST PAIN 11/27/24 23:45 Morphine Sulfate 2 mg Q30M PRN IV FOR CHEST PAIN 11/27/24 23:45 Pantoprazole Sodium (Protonix) 40 mg BID IV 11/28/24 22:00 Diagnostic Test (Pha) (Accu-Chek Comfort Curve T) 1 strip ACHS 11/28/24 17:00 Insulin Human Regular (InsuLIN R) ACHS SC 11/28/24 17:00 Sucralfate (Carafate Susp) 1 gm QID@0600,1130,1700,2200 PO 11/28/24 13:00 11/28/24 14:13 Vital Signs Vital Signs Date Time Temp Pulse Resp B/P (MAP) Pulse Ox O2 Delivery O2 Flow Rate FiO2 11/28/24 12:55 97.8 80 17 123/65 (84) 94 97.8 11/28/24 08:05 Room Air* 0 21 Physical Exam Patient lying in bed, in no acute distress General: Well-built, afebrile, palor, mucosae are moist Cardiovascular: Regular S1 and S2. No murmurs, gallops or rubs. No JVD el evation. No pedal edema Respiratory: Normal B/L air entry on room air. Clear lung sounds on auscultation Abdomen: Soft, nontender, nondistended, normoactive bowel sounds, no rebound tenderness, no organomegaly, no masses Genitourinary: Deferred MSK/skin: Mobilizes 4 limbs. Skin is dry and warm Neurological: No motor, no sensitive deficits, normal speech. Pupils are isocoric and reactive. Psych/Mental Status: A/Ox3 Labs/Diagnostic Data Labs Test 11/28/24 10:45 11/28/24 08:26 11/27/24 12:58 Range/Units White Blood Count 10.7 4.4-10.8 10^3/uL Red Blood Count 3.02 L 4.0-5.20 10^6/uL Hemoglobin 10.0 #L 12.2-16.2 g/dL Hematocrit 29.8 #L 36.0-46.0 % Mean Corpuscular Volume 98.5 80.0-100.0 fL Mean Corpuscular Hemoglobin 33.1 H 28.0-32.0 pg Mean Corpuscular Hemoglobin Concent 33.6 32.0-36.0 g/dL Red Cell Distribution Width 14.5 H 11.8-14.3 % Platelet Count 223 140-450 10^3/uL Mean Platelet Volume 9.9 6.9-10.8 fL Neutrophils (%) (Auto) 84.1 H 37.0-80.0 % Lymphocytes (%) (Auto) 10.8 10.0-50.0 % Monocytes (%) (Auto) 3.6 0.0-12.0 % Eosinophils (%) (Auto) 1.1 0.0-7.0 % Basophils (%) (Auto) 0.4 0.0-2.0 % Neutrophils # (Auto) 9.0 H 1.6-8.6 10 ^3/uL Lymphocytes # (Auto) 1.2 0.4-5.4 10 ^3/uL Monocytes # (Auto) 0.4 0-1.3 10 ^3/uL Eosinophils # (Auto) 0.1 0-0.8 10 ^3/uL Basophils # (Auto) 0 0-0.2 10 ^3/uL Nucleated Red Blood Cells 0.0 % Sodium Level 137 136-145 mmol/L Potassium Level 4.3 3.5-5.1 mmol/L Chloride Level 104 98-107 mmol/L Carbon Dioxide Level 24 20-31 mmol/L Anion Gap 9 5-15 Blood Urea Nitrogen 30 H 9-23 mg/dL Creatinine 1.20 H 0.550-1.02 mg/dL Glomerular Filtration Rate Calc 47 >90 mL/min BUN/Creatinine Ratio 25.0 H 10.0-20.0 Serum Glucose 308 H 74-106 mg/dL Calcium Level 10.6 H 8.7-10.4 mg/dL Total Bilirubin 0.3 0.2-1.0 mg/dL Aspartate Amino Transferase (AST) 11 L 13-40 U/L Alanine Aminotransferase (ALT) 11 7-40 U/L Alkaline Phosphatase 80 46-116 U/L Total Protein 6.0 5.7-8.2 g/dL Albumin 3.7 3.2-4.8 g/dL POC Glucose 188 H 70-106 mg/dl Prothrombin Time 10.0 9.3-11.8 sec Prothrombin Time INR 0.94 0.9-1.15 Activated Partial Thromboplast Time 24.2 L 24.5-34.5 SEC Assessment Bright red bleeding per rectum secondary to ? Hemorrhoids History of multiple CVAs - last known in November 13 - on aspirin and Brilinta Anemia, normocytic Colonic diverticulosis, no acute diverticulitis ? UVALDO Uncontrolled diabetes mellitus, A1c 8.2 Small hiatal hernia Patient is not actively bleeding. No bowel movements today. Reports that the pain has decreased in intensity. Last colonoscopy was 3 years back. Plan: Given that the H&H is stable, no active bleeding clinically, No urgent intervention needed at this time.. We will continue to monitor the patient at this time. Patient would benefit from colonoscopy. Avoid NSAID/Brilinta/Plavix/ibuprofen Continue pantoprazole 40 mg b.i.d. and Carafate q.i.d. Monitor H&H Plan discussed with patient in which all questions have been answered Case discussed with Dr. Nguyen Plan discussed with: Patient CHRISTOPHER HAMPTON RESIDENT Nov 28, 2024 16:07
[2024-11-28] MEDS: ACCU-CHEK COMFORT CURVE STRIP VI SCH (16:59)
[2024-11-28] MEDS: InsuLIN REG 1unit/0.01ml Soln (100units/ml) SC SCH (17:07)
[2024-11-28] MEDS: PANTOPRAZOLE 40 MG/10 ML VIAL INJ IV SCH (21:34)
[2024-11-29 05:00] VITALS: BP 140/59; PULSE 87; RESP 17; TEMP 98.5; O2SAT 95
[2024-11-29 08:00] VITALS: PULSE 88
[2024-11-29 08:22] VITALS: BP 141/60; PULSE 80; RESP 16; TEMP 98.1; O2SAT 96
[2024-11-29 08:49] LABS: Basophils # (auto) 0.1 10 ^3/uL (0-0.2); Basophils % (auto) 0.5 % (0.0-2.0); Eosinophils # (auto) 0.3 10 ^3/uL (0-0.8); Eosinophils % (auto) 2.9 % (0.0-7.0); Hematocrit 28.7 % (36.0-46.0); Hemoglobin 9.7 g/dL (12.2-16.2); Lymphocytes # (auto) 2.2 10 ^3/uL (0.4-5.4); Lymphocytes % (auto) 19.9 % (10.0-50.0); Mean Corpuscular Hemoglobin 33.6 pg (28.0-32.0); Mean Corpuscular Volume 98.9 fL (80.0-100.0); Monocytes # (auto) 0.5 10 ^3/uL (0-1.3); Monocytes % (auto) 4.9 % (0.0-12.0); Neutrophils # (auto) 7.9 10 ^3/uL (1.6-8.6); Neutrophils % (auto) 71.8 % (37.0-80.0); Nucleated Red Blood Cells % 0.1 %; Platelet Count (auto) 225 10^3/uL (140-450); Red Cell Distribution Width 14.2 % (11.8-14.3)
[2024-11-29 08:56] LABS: Chloride 106 mmol/L (98-107); Potassium 4.1 mmol/L (3.5-5.1); Sodium 139 mmol/L (136-145)
[2024-11-29 08:57] LABS: Anion Gap 6 (5-15); Carbon Dioxide 27 mmol/L (20-31)
[2024-11-29 09:02] LABS: BUN/Creatinine Ratio 19.4 (10.0-20.0)
[2024-11-29 09:03] LABS: Blood Urea Nitrogen 24 mg/dL (9-23); Calcium 10.5 mg/dL (8.7-10.4); Glucose 204 mg/dL (74-106)
[2024-11-29 13:00] VITALS: BP 138/61; PULSE 83; RESP 16; TEMP 98.1; O2SAT 96
[2024-11-29 15:36] VITALS: BP 141/60; PULSE 86; RESP 16; TEMP 36.7; O2SAT 93
--- NOTE | 2024-11-29 18:35 | DVHDS2 ---
Discharge Summary Date of Admission Nov 27, 2024 at 23:31 Date of Discharge: Nov 29, 2024 Labs/Diagnostic Data: Laboratory Results Test 11/29/24 11:01 11/29/24 08:10 11/28/24 10:45 11/27/24 12:58 POC Glucose 280 mg/dl (70-106) White Blood Count 11.0 10^3/uL (4.4-10.8) Red Blood Count 2.90 10^6/uL (4.0-5.20) Hemoglobin 9.7 g/dL (12.2-16.2) Hematocrit 28.7 % (36.0-46.0) Mean Corpuscular Volume 98.9 fL (80.0-100.0) Mean Corpuscular Hemoglobin 33.6 pg (28.0-32.0) Mean Corpuscular Hemoglobin Concent 34.0 g/dL (32.0-36.0) Red Cell Distribution Width 14.2 % (11.8-14.3) Platelet Count 225 10^3/uL (140-450) Mean Platelet Volume 9.9 fL (6.9-10.8) Neutrophils (%) (Auto) 71.8 % (37.0-80.0) Lymphocytes (%) (Auto) 19.9 % (10.0-50.0) Monocytes (%) (Auto) 4.9 % (0.0-12.0) Eosinophils (%) (Auto) 2.9 % (0.0-7.0) Basophils (%) (Auto) 0.5 % (0.0-2.0) Neutrophils # (Auto) 7.9 10 ^3/uL (1.6-8.6) Lymphocytes # (Auto) 2.2 10 ^3/uL (0.4-5.4) Monocytes # (Auto) 0.5 10 ^3/uL (0-1.3) Eosinophils # (Auto) 0.3 10 ^3/uL (0-0.8) Basophils # (Auto) 0.1 10 ^3/uL (0-0.2) Nucleated Red Blood Cells 0.1 % Sodium Level 139 mmol/L (136-145) Potassium Level 4.1 mmol/L (3.5-5.1) Chloride Level 106 mmol/L (98-107) Carbon Dioxide Level 27 mmol/L (20-31) Anion Gap 6 (5-15) Blood Urea Nitrogen 24 mg/dL (9-23) Creatinine 1.24 mg/dL (0.550-1.02) Glomerular Filtration Rate Calc 45 mL/min (>90) BUN/Creatinine Ratio 19.4 (10.0-20.0) Serum Glucose 204 mg/dL (74-106) Calcium Level 10.5 mg/dL (8.7-10.4) Magnesium Level 2.0 mg/dL (1.6-2.6) Total Bilirubin 0.3 mg/dL (0.2-1.0) Aspartate Amino Transferase (AST) 11 U/L (13-40) Alanine Aminotransferase (ALT) 11 U/L (7-40) Alkaline Phosphatase 80 U/L (46-116) Total Protein 6.0 g/dL (5.7-8.2) Albumin 3.7 g/dL (3.2-4.8) Prothrombin Time 10.0 sec (9.3-11.8) Prothrombin Time INR 0.94 (0.9-1.15) Activated Partial Thromboplast Time 24.2 SEC (24.5-34.5) Other Laboratory Tests 11/29/24 08:10 Brief Hx & Hospital Course: Final diagnoses: Lower GI bleed H/O CVA on ASA and Plavix h/o multiple CVAs HTN DM2 Mixed hyperlipidemia 74 year old female came for 3 days of rectal bleeding She was taking ASA and Plavix at home Hb dropped somewhat but overall remained stable She had no more rectal bleeding She remained stable She was seen by GI and recommended no further intervention at this time, she had a colonoscopy done 3 years ago, recommended for outpatient follow up We instructed the patient to discontinue the Plavix since her last stroke was more than a year ago and to hold aspirin for 1 week then resume it at 81 mg daily Follow up with her primary care physician as soon as possible and resume other home medications Condition at Discharge: Stable Final Diagnosis/Problems List Lower GI bleed H/O CVA on ASA and Plavix h/o multiple CVAs HTN DM2 Mixed hyperlipidemia Discharge Disposition: Home SNF Discharge Will this Physician continue t: No Discharge Instruct/Medications Diet: Cardiac 2g Na,low cholest Activity: No Restrictions, As Tolerated Follow Up/Referral: PCP JOAQUINA Medications: DC Plavix completely Stop Aspirin x 1 week then resume 81 mg qd Resume other home meds Discharge Statement: "Patient was advised to return to the ER or call 911 if any headaches, dizziness, shortness of breath, chest pain, abdominal pain, bleeding, fevers, or worsening of medical condition. Patient was counseled about treatment plan, medications, possible side effects, patientverbalized understanding. All questions were answered to the best of my ability. This discharge took greater then 30 minutes in planning, reviewing documentation, counseling the patient, and discussing with other team members." ASSESSMENT ASSESSMENT Assessment Lower GI bleed Multiple old CVAs Date of Service: Nov 29, 2024 Billing Provider: KARYNA DURAN MD Common Visit Codes: NOT BILLABLE KARYNA DURAN MD Nov 29, 2024 18:35
--- NOTE | 2024-11-29 20:50 | DVHPN2 ---
Progress Note - Dictate Date Seen: Nov 29, 2024 (Late entryPt seen at 4 pm) Medical Necessity Reason Pt with a Central, PICC or Fol: No Subjective 74 year old female came for 3 days of rectal bleeding She was taking ASA and Plavix at home Hb dropped somewhat but overall remained stable;at 9.7 She had no more rectal bleeding She remained stable She had a colonoscopy done 3 years ago which showed diverticulosis vital signs Vital Sign Date Time Temp Pulse Resp B/P (MAP) Pulse Ox O2 Delivery O2 Flow Rate FiO2 11/29/24 15:36 36.7 86 16 93 11/29/24 13:00 138/61 (86) 11/29/24 08:10 Room Air* 0 21 Total Intake and Output 11/28/24 11/28/24 11/29/24 15:00 23:00 07:00 Intake Total 50 ml 450 ml 500 ml Balance 50 ml 450 ml 500 ml laboratory and microbiology Laboratory Tests 11/29/24 08:10 Test 11/29/24 08:10 Range/Units Serum Glucose 204 H 74-106 mg/dL Problems(with codes): (1) Unspecified abdominal pain (2) Lower GI bleed Prognosis PLAN Discharge planning is in progress, patient has been recommended outpatient follow up with GI Services in 2-4 weeks Patient has been interested to return to ER if she has any recurrent GI bleeding Discontinue the Plavix since her last stroke was more than a year ago and to hold aspirin for 1 week then resume it at 81 mg daily Follow up with her primary care physician as soon as possible and resume other home medications Plan discussed with: Patient, Other (Nurse) CRISELDA SOLER MD Nov 29, 2024 20:50
== END 2024-11-29 16:35 | disposition home or self-care (01) | DRG 392 ==
LOC: ER 11:48 → TELE 23:31 → TELE-WESTW 11-28 03:34
PROVIDERS: ADMIT Nurse Practitioner Family; ATTEND Nurse Practitioner Family
DX: K57.90 Diverticulosis of intestine, part unspecified, without perforation or abscess without bleeding (principal); D62 Acute posthemorrhagic anemia; K59.00 Constipation, unspecified; E78.2 Mixed hyperlipidemia; I10 Essential (primary) hypertension; K44.9 Diaphragmatic hernia without obstruction or gangrene; Z90.710 Acquired absence of both cervix and uterus; Z79.82 Long term (current) use of aspirin; Z83.3 Family history of diabetes mellitus; Z86.73 Personal history of transient ischemic attack (TIA), and cerebral infarction without residual deficits; Z82.3 Family history of stroke; Z79.4 Long term (current) use of insulin; E11.65 Type 2 diabetes mellitus with hyperglycemia
CPT/HCPCS: 36415; 74176; 80048; 80053; 82962; 83735; 85025; 85610; 85730; 96365; G0378; J1815; J2470